=== PATIENT | female | born 1940 | race Caucasian/White ===

== ENCOUNTER → 2017-04-15 | Outpatient (CLI) | payer MEDICARE, BC ==
--- NOTE | 2017-04-15 14:09 | BD ---
EXAMINATION TYPE: MG DEXA axial skeleton. DATE OF EXAM: 04/15/2017 COMPARISON: NONE CLINICAL HISTORY: Height: 65 IN Weight: 224 LBS FRAX RISK QUESTIONS: Alcohol (3 or more units per day): NO Family History (Parent hip fracture): NO Glucocorticoids (More than 3mos): NO (Ex: prednisone, prednisolone, methylprednisolone, dexamethasone, and hydrocortisone). History of Fracture in Adulthood: YES RT HAND AGE 62 Secondary Osteoporosis: 1. Type 1 Diabetes: NO 2. Hyperthyroidism: NO 3. Menopause before 45: NO 4. Malnutrition: NO 5. Chronic liver disease: NO Rheumatoid Arthritis: NO Current Tobacco Use: NO RISK FACTORS HISTORY OF: History of Wrist Fracture: LEFT WRIST When: IN 2007 Other Fractures since Age 52: YES RT HAND When: AGE 62 Active: YES Postmenopausal woman: AGE 57 MEDICATIONS: Thyroid Medications: YES Which medication: Levothyroxine How Lon YRS Additional Medications: CALCIUM, LEVOTHYROXINE, XANAX, AMLODIPINE, FLONASE, LISINIPRIL, ATENOLOL, ENRIQUE RVASTATIN, ISOSORBIDE EXAM MEASUREMENTS: Bone mineral densitometry was performed using the [employer] System. Bone mineral density as measured about the Lumbar spine is: ----- L1-L4(G/cm2): 1.187 T Score Values are as follows: ----- L2: 0.0 ----- L3: -0.5 ----- L4: 0.1 ----- L1-L4: 0.1 Bone mineral density has: Increased 1.7% since study of: 02/19/2013 Bone mineral density about the R hip (g/cm2): 0.875 Bone mineral density about the L hip (g/cm2): 0.852 T Score values are as follows: -----R Neck: -1.2 -----L Neck: -1.3 -----R Total: -0.3 -----L Total: -0.5 Bone mineral density has: Decreased -6.7% since study of: 02/19/2013 IMPRESSION: No evidence of osteopenia or osteoporosis NOTE: T-SCORE=SD OF THE YOUNG ADULT MEAN.
--- NOTE | 2017-04-16 14:09 | MM ---
Reason for exam: screening (asymptomatic). Last mammogram was performed 2 years and 1 month ago. History: Patient is postmenopausal. Physical Findings: A clinical breast exam by your physician is recommended on an annual basis and results should be correlated with mammographic findings. MG Screening Mammo w CAD Bilateral CC and MLO view(s) were taken. Prior study comparison: March 09, 2015, bilateral MG screening mammo w CAD. There are scattered fibroglandular densities. No significant changes when compared with prior studies. ASSESSMENT: Benign, BI-RAD 2 RECOMMENDATION: Routine screening mammogram of both breasts in 1 year.
== END | disposition home or self-care (01) ==
LOC: RADMAMWWP 11:55
PROVIDERS: ATTEND Internal Medicine
DX: Z12.31 Encounter for screening mammogram for malignant neoplasm of breast (principal); M81.0 Age-related osteoporosis without current pathological fracture
CPT/HCPCS: 77080; G0202

== ENCOUNTER 2017-06-08 21:27 | Inpatient (IN) | payer MEDICARE, BC ==
--- NOTE | 2017-06-08 22:05 | ED ---
Weakness HPI <JoeJorge - Last Filed: 06/08/17 23:28> - General Source: patient Mode of arrival: ambulatory Limitations: no limitations <Jasmine Mazariegos - Last Filed: 06/08/17 23:44> - General Chief complaint: Weakness Stated complaint: Weakness, Neck Pain Time Seen by Provider: 06/08/17 21:40 - History of Present Illness Initial comments: 76-year-old female patient presents to emergency department today complaining of feeling rundown and tired. Symptoms started this morning. Patient states for the last couple of hours she has had sweats on and off, some chest discomfort, and pain in the back of her neck. Patient denies any shortness of breath, back pain, nausea, vomiting, abdominal pain, dizziness, weakness, dysuria, hematuria, urinary frequency, or urinary urgency. Patient does have history of myocardial infarction, 2 stents, and has had carotid endarterectomy in the past. Has history of smoking. She did take acetaminophen prior to coming in and states that her neck pain did improve. (Jasmine Mazariegos) - Related Data Home Medications Medication Instructions Recorded Confirmed ALPRAZolam [Alprazolam] 0.5 mg PO HS PRN 09/05/16 09/06/16 Aspirin 325 mg PO DAILY 09/05/16 09/06/16 Atenolol [Tenormin] 25 mg PO DAILY 09/05/16 09/06/16 Atorvastatin Calcium 40 mg PO DAILY 09/05/16 09/06/16 Clopidogrel Bisulfate [Clopidogrel] 75 mg PO DAILY 09/05/16 09/06/16 Isosorbide Mononitrate [Isosorbide 30 mg PO DAILY 09/05/16 09/06/16 Mononitrate ER] Levothyroxine Sodium [Synthroid] 50 mcg PO DAILY 09/05/16 09/06/16 Lisinopril [Lisinopril] 20 mg PO DAILY 09/05/16 09/06/16 Multivitamins, Thera [Multivitamin] 1 each PO DAILY 09/05/16 09/06/16 amLODIPine [Norvasc] 5 mg PO DAILY 09/05/16 09/06/16 Allergies Allergy/AdvReac Type Severity Reaction Status Date / Time erythromycin base Allergy Rash/Hives Verified 06/08/17 21:37 Penicillins Allergy Unknown Verified 06/08/17 21:37 Childhood sulfamethoxazole Allergy Rash/Hives Verified 06/08/17 21:37 [From ] trimethoprim [From ] Allergy Rash/Hives Verified 06/08/17 21:37 Review of Systems ROS Other: All systems not noted in ROS Statement are negative. <JoeJorge - Last Filed: 06/08/17 23:28> ROS Other: All systems not noted in ROS Statement are negative. <Jasmine Mazariegos - Last Filed: 06/08/17 23:44> ROS Statement: Those systems with pertinent positive or pertinent negative responses have been documented in the HPI. Past Medical History Past Medical History: Coronary Artery Disease (CAD), Hyperlipidemia, Hypertension, Osteoarthritis (OA) History of Any Multi-Drug Resistant Organisms: None Reported Past Surgical History: Heart Catheterization With Stent, Hysterectomy Additional Past Surgical History / Comment(s): carotidendartectomy Past Psychological History: Anxiety Smoking Status: Never smoker Past Alcohol Use History: Occasional Past Drug Use History: None Reported <Jasmine Mazariegos - Last Filed: 06/08/17 23:44> General Exam Limitations: no limitations General appearance: alert, in no apparent distress Head exam: Present: atraumatic, normocephalic, normal inspection Eye exam: Present: normal appearance, PERRL, EOMI. Absent: scleral icterus, conjunctival injection, periorbital swelling ENT exam: Present: normal exam, mucous membranes moist Neck exam: Present: normal inspection, full ROM. Absent: tenderness, meningismus, lymphadenopathy Respiratory exam: Present: normal lung sounds bilaterally. Absent: respiratory distress, wheezes, rales, rhonchi, stridor Cardiovascular Exam: Present: normal rhythm, irregular rhythm, normal heart sounds. Absent: systolic murmur, diastolic murmur, rubs, gallop, clicks GI/Abdominal exam: Present: soft, normal bowel sounds. Absent: distended, tenderness, guarding, rebound, rigid Extremities exam: Present: normal inspection, full ROM, normal capillary refill. Absent: tenderness, pedal edema, joint swelling, calf tenderness Back exam: Present: normal inspection Neurological exam: Present: alert, oriented X3, CN II-XII intact Psychiatric exam: Present: normal affect, normal mood Skin exam: Present: warm, dry, intact, normal color. Absent: rash <Jasmine Mazariegos - Last Filed: 06/08/17 23:44> EKG Findings - EKG Comments: EKG Findings:: EKG obtained at 2152 reveals atrial fibrillation with a right bundle branch block. Ventricular rate at this time is 83, QRS duration 138, QTC 408, QTC 479. No prior studies available for comparison. <Jasmine Mazariegos - Last Filed: 06/08/17 23:44> Medical Decision Making - Lab Data Result diagrams: 06/08/17 21:50 06/08/17 21:50 <JoeJorge - Last Filed: 06/08/17 23:28> - Lab Data Result diagrams: 06/08/17 21:50 06/08/17 21:50 - Radiology Data Radiology results: report reviewed, image reviewed <Jasmine Mazariegos - Last Filed: 06/08/17 23:44> - Medical Decision Making Medical decision-making. This is a 76-year-old female here with family. The patient reports that throughout the day she felt unusually weak. Became diaphoretic toward the afternoon. Patient states she even had difficulty mixing batter to make take. She had discomfort to her back and some mild pressure to her chest. Upon arrival to emergency room EKG showed what appeared to be possible new onset A. fib. After approximate one-hour repeat EKG was done which showed some P waves. Enzymes within normal limits. The patient does have a past history of [place] in the past. It was thought prudent for the patient be admitted for observation for unstable angina and the possibility of a new onset A. fib. Patient has seen cardiology in the past. Discussed the case with Dr. Ceep the on-call for Dr. Flynn. Patient be admitted to Dr. Herrera. Dr. Diaz (Jorge Diaz) 76-year-old female patient presented today for fatigue and unusual weakness. Patient also had some diaphoresis on and off a couple hours prior to admission. Initial EKG evaluation showed a new onset atrial fibrillation. EKG was repeated later during stay and did show normal sinus rhythm at that point. Patient does have a history of myocardial infarction with stent placement. In light of this history we will admit patient to Dr. Hendricks's service with cardiology consult. Patient will be heparinized. Dr. Diaz did speak with Dr. Hendricks who agreed to this plan. Also did discuss with patient incidental findings of 2 nodules on chest x-ray. Did recommend follow-up evaluation as well as repeat chest x-ray in 3-6 months. (Jasmine Mazariegos) - Lab Data Lab Results 06/08/17 06/08/17 06/08/17 Range/Units 21:50 21:50 21:50 WBC 11.5 H (3.8-10.6) k/uL RBC 4.37 (3.80-5.40) m/uL Hgb 12.9 (11.4-16.0) gm/dL Hct 39.5 (34.0-46.0) % MCV 90.4 (80.0-100.0) fL MCH 29.5 (25.0-35.0) pg MCHC 32.6 (31.0-37.0) g/dL RDW 14.2 (11.5-15.5) % Plt Count 340 (150-450) k/uL Neutrophils % 77 % Lymphocytes % 12 % Monocytes % 6 % Eosinophils % 3 % Basophils % 0 % Neutrophils # 8.9 H (1.3-7.7) k/uL Lymphocytes # 1.4 (1.0-4.8) k/uL Monocytes # 0.7 (0-1.0) k/uL Eosinophils # 0.3 (0-0.7) k/uL Basophils # 0.0 (0-0.2) k/uL PT (9.0-12.0) sec INR (<1.2) APTT (22.0-30.0) sec Sodium 143 (137-145) mmol/L Potassium 4.3 (3.5-5.1) mmol/L Chloride 108 H (98-107) mmol/L Carbon Dioxide 22 (22-30) mmol/L Anion Gap 13 mmol/L BUN 19 H (7-17) mg/dL Creatinine 0.90 (0.52-1.04) mg/dL Est GFR (MDRD) Af Amer >60 (>60 ml/min/1.73 sqM) Est GFR (MDRD) Non-Af >60 (>60 ml/min/1.73 sqM) Glucose 133 H (74-99) mg/dL POC Glucose (mg/dL) (75-99) mg/dL POC Glu Rover Tender ID Calcium 9.7 (8.4-10.2) mg/dL Magnesium 1.8 (1.6-2.3) mg/dL Total Bilirubin 0.3 (0.2-1.3) mg/dL AST 19 (14-36) U/L ALT 29 (9-52) U/L Alkaline Phosphatase 86 (38-126) U/L Total Creatine Kinase 89 (30-135) U/L CK-MB (CK-2) 0.9 (0.0-2.4) ng/mL CK-MB (CK-2) Rel Index 1.0 Troponin I <0.012 (0.000-0.034) ng/mL Total Protein 6.6 (6.3-8.2) g/dL Albumin 4.0 (3.5-5.0) g/dL TSH 2.870 (0.465-4.680) mIU/L Urine Color Urine Appearance (Clear) Urine pH (5.0-8.0) Ur Specific [place] (1.001-1.035) Urine Protein (Negative) Urine Glucose (UA) (Negative) Urine Ketones (Negative) Urine Blood (Negative) Urine Nitrite (Negative) Urine Bilirubin (Negative) Urine Urobilinogen (<2.0) mg/dL Ur Leukocyte Esterase (Negative) Urine RBC (0-5) /hpf Urine WBC (0-5) /hpf Ur Squamous Epith Cells (0-4) /hpf Hyaline Casts (0-2) /lpf Urine Mucus (None) /hpf 06/08/17 06/08/17 06/08/17 Range/Units 21:50 21:50 21:50 WBC (3.8-10.6) k/uL RBC (3.80-5.40) m/uL Hgb (11.4-16.0) gm/dL Hct (34.0-46.0) % MCV (80.0-100.0) fL MCH (25.0-35.0) pg MCHC (31.0-37.0) g/dL RDW (11.5-15.5) % Plt Count (150-450) k/uL Neutrophils % % Lymphocytes % % Monocytes % % Eosinophils % % Basophils % % Neutrophils # (1.3-7.7) k/uL Lymphocytes # (1.0-4.8) k/uL Monocytes # (0-1.0) k/uL Eosinophils # (0-0.7) k/uL Basophils # (0-0.2) k/uL PT 9.5 (9.0-12.0) sec INR 0.9 (<1.2) APTT 23.0 (22.0-30.0) sec Sodium (137-145) mmol/L Potassium (3.5-5.1) mmol/L Chloride (98-107) mmol/L Carbon Dioxide (22-30) mmol/L Anion Gap mmol/L BUN (7-17) mg/dL Creatinine (0.52-1.04) mg/dL Est GFR (MDRD) Af Amer (>60 ml/min/1.73 sqM) Est GFR (MDRD) Non-Af (>60 ml/min/1.73 sqM) Glucose (74-99) mg/dL POC Glucose (mg/dL) 129 H (75-99) mg/dL POC Glu Rover Tender ID Miquel Zamarripa Calcium (8.4-10.2) mg/dL Magnesium (1.6-2.3) mg/dL Total Bilirubin (0.2-1.3) mg/dL AST (14-36) U/L ALT (9-52) U/L Alkaline Phosphatase (38-126) U/L Total Creatine Kinase (30-135) U/L CK-MB (CK-2) (0.0-2.4) ng/mL CK-MB (CK-2) Rel Index Troponin I (0.000-0.034) ng/mL Total Protein (6.3-8.2) g/dL Albumin (3.5-5.0) g/dL TSH (0.465-4.680) mIU/L Urine Color Yellow Urine Appearance Cloudy H (Clear) Urine pH 5.5 (5.0-8.0) Ur Specific [place] 1.021 (1.001-1.035) Urine Protein 1+ H (Negative) Urine Glucose (UA) Negative (Negative) Urine Ketones Negative (Negative) Urine Blood Negative (Negative) Urine Nitrite Negative (Negative) Urine Bilirubin 1+ H (Negative) Urine Urobilinogen 2.0 (<2.0) mg/dL Ur Leukocyte Esterase Large H (Negative) Urine RBC 3 (0-5) /hpf Urine WBC 3 (0-5) /hpf Ur Squamous Epith Cells 4 (0-4) /hpf Hyaline Casts 167 H (0-2) /lpf Urine Mucus Many H (None) /hpf - Radiology Data Two-view x-ray of the chest shows no focal home area infiltrate or consolidations. There is a small 5 mm nodular density to the lateral right lung base. Additional approximate 10 mm ovoid nodular density show cardiac region only well appreciated on lateral view.Shows no evidence of pleural effusion or pneumothorax. Heart size within normal limits. Mediastinal structures are unremarkable. Degenerative changes throughout the mid and lower thoracic spine. Prominent calcific atherosclerotic plaque involving the thoracic aorta. Impression by Dr. Steele was no evidence of acute cardiopulmonary disease. Small lateral right lung base nodular density in additional nodular density in the retrocardiac region which are of indeterminate etiology. Follow-up CT chest should be considered. (Jasmine Mazariegos) Disposition <Jorge Diaz - Last Filed: 06/08/17 23:28> Decision to Admit Reason: Admit from EC Decision Date: 06/08/17 Decision Time: 23:39 <Jasmine Mazariegos - Last Filed: 06/08/17 23:44> Clinical Impression: Unstable angina, New onset a-fib Disposition: ADMITTED IP TO THIS HOSP Condition: Fair Referrals: Dayday Swanson MD [Primary Care Provider] - 1-2 days
[2017-06-08 22:10] LABS: Basophils % (A) 0 %; CH 30.2; CHCM 33.6; Eosinophils # (A) 0.3 k/uL (0-0.7); Eosinophils % (A) 3 %; Glucose,Whole Blood 129 mg/dL (75-99); HCT 39.5 % (34.0-46.0); HDW 2.38; HGB 12.9 gm/dL (11.4-16.0); Luc # (Auto) 0.23; Luc % (Auto) 2; Lymphocytes # (A) 1.4 k/uL (1.0-4.8); Lymphocytes % (A) 12 %; MCH 29.5 pg (25.0-35.0); MCHC 32.6 g/dL (31.0-37.0); MCV 90.4 fL (80.0-100.0); Mean Platelet Volume 8.8; Monocytes # (A) 0.7 k/uL (0-1.0); Monocytes % (A) 6 %; Neutrophils # (A) 8.9 k/uL (1.3-7.7); Neutrophils % (A) 77 %; RBC 4.37 m/uL (3.80-5.40); RDW 14.2 % (11.5-15.5); WBC 11.5 k/uL (3.8-10.6); WBC (Perox) 11.03
[2017-06-08 22:11] LABS: Appearance,Urine Cloudy (Clear); Bilirubin,Urine 1+ (Negative); Glucose,Urine (UA) Negative (Negative); Ketones,Urine Negative (Negative); Leukocyte Esterase,Urine Large (Negative); Mucus,Urine Many /hpf; Nitrite,Urine Negative (Negative); PH, Urine 5.5 (5.0-8.0); Particle Count 12673; Protein,Urine 1+ (Negative); RBC,Urine 3 /hpf (0-5); Specific Gravity,Urine 1.021 (1.001-1.035); Squamous Epithelial Cell,Urine 4 /hpf (0-4); UA Billing (MACRO vs. MICRO) MICRO; WBC,Urine 3 /hpf (0-5)
[2017-06-08 22:19] LABS: ALT 29 U/L (9-52); AST 19 U/L (14-36); Alkaline Phosphatase 86 U/L (38-126); Anion Gap 13 mmol/L; Blood Urea Nitrogen 19 mg/dL (7-17); Calcium 9.7 mg/dL (8.4-10.2); Carbon Dioxide 22 mmol/L (22-30); Chloride 108 mmol/L (98-107); Glucose 133 mg/dL (74-99); Magnesium 1.8 mg/dL (1.6-2.3); Non-African American GFR(MDRD) >60 (>60 ml/min/1.73 sqM); Potassium 4.3 mmol/L (3.5-5.1); Sodium 143 mmol/L (137-145); Total Bilirubin 0.3 mg/dL (0.2-1.3); Total Protein 6.6 g/dL (6.3-8.2)
[2017-06-08 22:25] LABS: INR 0.9 (<1.2); Prothrombin Time 9.5 sec (9.0-12.0)
[2017-06-08 22:35] LABS: Creatine Kinase 89 U/L (30-135)
[2017-06-08 22:48] LABS: Creatine Kinase MB 0.9 ng/mL (0.0-2.4); Troponin I <0.012 ng/mL (0.000-0.034)
--- NOTE | 2017-06-08 22:49 | XR ---
EXAM: XR Chest, 2 Views CLINICAL HISTORY: Reason: Weakness TECHNIQUE: Frontal and lateral views of the chest. COMPARISON: Portable AP Chest radiograph 09/06/2016 FINDINGS: Lungs: No focal pulmonary infiltrates or consolidations. Small 5 mm nodular density projects to lateral right lung base. Additional approximately 10 mm ovoid nodular density retrocardiac region only well appreciated on lateral view. Pleural space: No evidence of pleural effusion or pneumothorax. Heart: Heart size is within normal limits. Mediastinum: Mediastinal structures are unremarkable. Bones/joints: Degenerative changes throughout the mid and lower thoracic spine. Vasculature: Prominent calcific atherosclerotic plaque involving thoracic aorta. IMPRESSION: No evidence of acute cardiopulmonary disease. Small lateral right lung base nodular density and additional nodular density in the retrocardiac region which are of indeterminate etiology. Follow-up CT chest should be considered.
[2017-06-08] MEDS ORDERED: ASPIRIN 81 MG CHEW PO STA (23:33)
[2017-06-08] MEDS ORDERED: NITROGLYCERIN SL TABS 0.4 MG TAB SUBLINGUAL PRN (23:33)
[2017-06-08] MEDS ORDERED: HEPARIN SODIUM,PORCINE 5,000 UNIT/ML 1 ML VIAL IV ONE (23:33)
[2017-06-08] MEDS ORDERED: HEPARIN SODIUM,PORCINE/D5W PMX 25,000 UNIT in DEXTROSE/WATER 1 500ML.BAG IV SCH (23:45)
[2017-06-09] MEDS: SODIUM CHLORIDE 0.9% 1,000 ML IV SCH (02:53)
[2017-06-09 04:30] LABS: Creatine Kinase 59 U/L (30-135)
[2017-06-09 04:42] LABS: Creatine Kinase MB 0.6 ng/mL (0.0-2.4); Troponin I <0.012 ng/mL (0.000-0.034)
[2017-06-09 05:07] LABS: Cholesterol 106 mg/dL (<200); HDL Cholesterol 32 mg/dL (40-60)
[2017-06-09] MEDS ORDERED: HEPARIN SODIUM,PORCINE 5,000 UNIT/ML 1 ML VIAL IV PRN (07:52)
[2017-06-09] MEDS ORDERED: ASPIRIN 325 MG TAB PO SCH (09:00)
[2017-06-09 10:25] LABS: Creatine Kinase 56 U/L (30-135)
[2017-06-09 10:37] LABS: Creatine Kinase MB 0.5 ng/mL (0.0-2.4); Troponin I <0.012 ng/mL (0.000-0.034)
[2017-06-09] MEDS ORDERED: ALPRAZolam 0.5 MG TAB PO PRN (10:37)
[2017-06-09] MEDS ORDERED: AMINOPHYLLINE 500 MG/20 ML VIAL IV PRN (12:05)
--- NOTE | 2017-06-09 12:05 | P.CRDCN ---
History of Present Illness Consult date: 06/09/17 Chief complaint: Chest discomfort History of present illness: This is a pleasant 76-year-old female patient who sees Dr. Drummond in the office on a regular basis with a past medical history significant for CAD and prior stenting with unknown details at this point, hypertension, and dyslipidemia, presented to the hospital because she was not feeling well. The patient was in her usual state of health until yesterday when she was doing some work at home and she felt tired and fatigued and also she developed pain in her neck. Beside that she developed some discomfort in the chest as well. She described also some episodes of sweating. The patient was admitted to the hospital for further cardiac evaluation. The EKG showed sinus rhythm with RBBB. Cardiac enzymes were checked and came in to be unremarkable. Past Medical History Past Medical History: Coronary Artery Disease (CAD), Hyperlipidemia, Hypertension, Osteoarthritis (OA) Additional Past Medical History / Comment(s): bronchoscopy (September 2016)- found nodules History of Any Multi-Drug Resistant Organisms: None Reported Past Surgical History: Adenoidectomy, Heart Catheterization With Stent, Hysterectomy Additional Past Surgical History / Comment(s): carotidendartectomy Past Anesthesia/Blood Transfusion Reactions: No Reported Reaction Date of Last Stent Placement:: 2005 Past Psychological History: Anxiety Smoking Status: Never smoker Past Alcohol Use History: Occasional Past Drug Use History: None Reported - Past Family History Father Family Medical History: Hypertension, Myocardial Infarction ([place]) Mother Family Medical History: Hypertension Additional Family Medical History / Comment(s): Liver Cancer Medications and Allergies Home Medications Medication Instructions Recorded Confirmed Type ALPRAZolam [Alprazolam] 0.5 mg PO HS PRN 09/05/16 06/09/17 History Aspirin 325 mg PO DAILY 09/05/16 06/09/17 History Atenolol [Tenormin] 25 mg PO DAILY 09/05/16 06/09/17 History Atorvastatin Calcium 40 mg PO HS 09/05/16 06/09/17 History Isosorbide Mononitrate [Isosorbide 30 mg PO DAILY 09/05/16 06/09/17 History Mononitrate ER] Levothyroxine Sodium [Synthroid] 50 mcg PO DAILY 09/05/16 06/09/17 History Lisinopril [Lisinopril] 20 mg PO DAILY 09/05/16 06/09/17 History Multivitamins, Thera [Multivitamin] 1 tab PO DAILY 09/05/16 06/09/17 History amLODIPine [Norvasc] 5 mg PO DAILY 09/05/16 06/09/17 History Allergies Allergy/AdvReac Type Severity Reaction Status Date / Time erythromycin base Allergy Rash/Hives Verified 06/09/17 09:14 Penicillins Allergy Unknown Verified 06/09/17 09:14 Childhood sulfamethoxazole Allergy Rash/Hives Verified 06/09/17 09:14 [From ] trimethoprim [From ] Allergy Rash/Hives Verified 06/09/17 09:14 Physical Exam Vitals: Vital Signs Temp Pulse Pulse Resp BP BP Pulse Ox 06/09/17 11:48 96.0 F L 68 18 182/74 95 06/09/17 08:00 96.2 F L 61 18 152/67 97 06/09/17 04:00 57 L 18 132/60 99 06/09/17 00:33 96.8 F L 69 20 180/71 97 06/09/17 00:19 98.0 F 64 18 176/80 97 06/09/17 00:02 98.0 F 72 18 176/80 96 06/08/17 23:00 66 18 98 06/08/17 22:33 63 18 150/68 97 06/08/17 22:02 85 06/08/17 21:34 97.2 F L 86 18 196/80 98 Intake and Output 06/08/17 06/09/17 06/09/17 22:59 06:59 14:59 Intake Total 164.251 Balance 164.251 Intake: Intake, IV Titration 164.251 Amount Heparin Sodium,Porcine/ 164.251 D5w Pmx 25,000 unit In Dextrose/Water 1 500ml. bag @ 9.745 UNITS/KG/HR 20.06 mls/hr IV .Q24H [facility] Rx#:[id number] Other: Voiding Method Toilet # Voids 2 Weight 102.965 kg 102 kg - Constitutional General appearance: no acute distress - Respiratory Respiratory: bilateral: CTA - Cardiovascular Rhythm: regular Heart sounds: normal: S1, S2 Results 06/08/17 21:50 06/08/17 21:50 Cardiac Enzymes 06/08/17 06/08/17 06/09/17 Range/Units 21:50 21:50 03:57 AST 19 (14-36) U/L CK-MB (CK-2) 0.9 0.6 (0.0-2.4) ng/mL Troponin I <0.012 <0.012 (0.000-0.034) ng/mL 06/09/17 Range/Units 09:46 AST (14-36) U/L CK-MB (CK-2) 0.5 (0.0-2.4) ng/mL Troponin I <0.012 (0.000-0.034) ng/mL Coagulation 06/08/17 06/09/17 Range/Units 21:50 07:03 PT 9.5 (9.0-12.0) sec APTT 23.0 39.6 H (22.0-30.0) sec Lipids 06/09/17 Range/Units 03:57 Triglycerides 228 H (<150) mg/dL Cholesterol 106 (<200) mg/dL HDL Cholesterol 32 L (40-60) mg/dL CBC 06/08/17 Range/Units 21:50 WBC 11.5 H (3.8-10.6) k/uL RBC 4.37 (3.80-5.40) m/uL Hgb 12.9 (11.4-16.0) gm/dL Hct 39.5 (34.0-46.0) % Plt Count 340 (150-450) k/uL Comprehensive Metabolic Panel 06/08/17 Range/Units 21:50 Sodium 143 (137-145) mmol/L Potassium 4.3 (3.5-5.1) mmol/L Chloride 108 H (98-107) mmol/L Carbon Dioxide 22 (22-30) mmol/L BUN 19 H (7-17) mg/dL Creatinine 0.90 (0.52-1.04) mg/dL Glucose 133 H (74-99) mg/dL Calcium 9.7 (8.4-10.2) mg/dL AST 19 (14-36) U/L ALT 29 (9-52) U/L Alkaline Phosphatase 86 (38-126) U/L Total Protein 6.6 (6.3-8.2) g/dL Albumin 4.0 (3.5-5.0) g/dL Current Medications Generic Name Dose Route Start Last Admin Trade Name Analia PRN Reason Stop Dose Admin Alprazolam 0.5 mg 06/09/17 10:37 Xanax PO HS PRN SLEEP Amlodipine Besylate 5 mg 06/09/17 09:00 Norvasc PO DAILY [facility] Aspirin 325 mg 06/10/17 09:00 Aspirin PO DAILY [facility] Atenolol 25 mg 06/09/17 10:45 Tenormin PO DAILY [facility] Atorvastatin Calcium 40 mg 06/09/17 21:00 Lipitor PO HS [facility] Heparin Sodium (Porcine) 0 unit 06/09/17 07:52 06/09/17 08:08 Heparin IV 4,000 unit PER PROTOCOL PRN Administration Low PTT Protocol Heparin Sodium/Dextrose 25,000 500 mls @ 20.06 mls/hr 06/08/17 23:45 08:13 unit/ IV Solution IV 12.7 units/kg/hr .Q24H [facility] 26.15 mls/hr Protocol Titration 9.745 UNITS/KG/HR Sodium Chloride 1,000 mls @ 20 mls/hr 06/08/17 23:45 06/09/17 02:53 Saline 0.9% IV Not Given .Q24H [facility] Isosorbide Mononitrate 30 mg 06/09/17 10:45 Imdur PO DAILY [facility] Levothyroxine Sodium 50 mcg 06/09/17 10:45 Synthroid PO DAILY@0630 [facility] Lisinopril 20 mg 06/09/17 10:45 Zestril PO DAILY [facility] Multivitamins 1 each 06/10/17 12:00 Theragran PO DAILY@1200 [facility] Nitroglycerin 0.4 mg 06/08/17 23:33 Nitrostat SUBLINGUAL Q5M PRN Chest Pain Intake and Output 06/08/17 06/09/17 06/09/17 22:59 06:59 14:59 Intake Total 164.251 Balance 164.251 Intake: Intake, IV Titration 164.251 Amount Heparin Sodium,Porcine/ 164.251 D5w Pmx 25,000 unit In Dextrose/Water 1 500ml. bag @ 9.745 UNITS/KG/HR 20.06 mls/hr IV .Q24H [facility] Rx#:[id number] Other: Voiding Method Toilet # Voids 2 Weight 102.965 kg 102 kg 06/08/17 21:50 06/08/17 21:50 Assessment and Plan Plan: This is a pleasant 76-year-old female patient was known CAD and prior stenting as well as multiple comorbid conditions was admitted to the hospital with chest discomfort and neck discomfort as well as a sweating. She was ruled out for acute coronary event. I am going to proceed with a stress test and also echocardiogram and follow-up with her.
[2017-06-09] MEDS: amLODIPine 5 MG TAB PO SCH (12:24)
[2017-06-09] MEDS: ISOSORBIDE MONONITRATE ER 30 MG TAB.ER.24H PO SCH (12:24)
[2017-06-09] MEDS: LISINOPRIL 20 MG TAB PO SCH (12:25)
[2017-06-09] MEDS: ATENOLOL 25 MG TAB PO SCH (12:25)
[2017-06-09] MEDS: LEVOTHYROXINE 50 MCG TAB PO SCH (12:25)
[2017-06-09] MEDS: CIPROFLOXACIN HCL 250 MG TAB PO SCH ×2 (14:52→22:05)
[2017-06-09] MEDS ORDERED: ATORVASTATIN 40 MG TAB PO SCH (21:00)
[2017-06-10 06:27] VITALS: RESP 18
[2017-06-10] MEDS: SODIUM CHLORIDE 0.9% 1,000 ML IV SCH (06:28)
[2017-06-10 06:47] LABS: Basophils % (A) 1 %; CHCM 32.9; Eosinophils # (A) 0.2 k/uL (0-0.7); Eosinophils % (A) 4 %; HCT 32.7 % (34.0-46.0); HDW 2.29; HGB 10.4 gm/dL (11.4-16.0); Luc % (Auto) 3; Lymphocytes % (A) 17 %; MCH 29.3 pg (25.0-35.0); MCV 91.6 fL (80.0-100.0); Mean Platelet Volume 8.5; Monocytes # (A) 0.4 k/uL (0-1.0); Monocytes % (A) 7 %; Neutrophils % (A) 68 %; RBC 3.57 m/uL (3.80-5.40); RDW 13.8 % (11.5-15.5); WBC 5.9 k/uL (3.8-10.6); WBC (Perox) 5.85
[2017-06-10] MEDS: LEVOTHYROXINE 50 MCG TAB PO SCH (06:55)
[2017-06-10 07:02] LABS: Anion Gap 9 mmol/L; Blood Urea Nitrogen 14 mg/dL (7-17); Calcium 8.9 mg/dL (8.4-10.2); Carbon Dioxide 23 mmol/L (22-30); Chloride 110 mmol/L (98-107); Glucose 87 mg/dL (74-99); Non-African American GFR(MDRD) >60 (>60 ml/min/1.73 sqM); Potassium 4.1 mmol/L (3.5-5.1); Sodium 142 mmol/L (137-145)
--- NOTE | 2017-06-10 08:08 | P.PN ---
Progress Note - Text The patient is a 76-year-old female who was admitted yesterday through the emergency room and seen by Dr. Hendricks for me. Cardiology has been consulted as patient had some weakness and chest discomfort. Patient does have history of coronary artery disease with history of previous stenting and she has other coronary risk factors which include hypertension and hyperlipidemia. So far her laboratory studies revealed normal troponin levels of less than 0.012 along with normal CK values. EKGs have revealed normal sinus rhythm with right bundle branch block, consistent with old inferior wall [place] but no definite new acute changes noted. Patient this morning is sitting up in bed and not complaining of any chest pain. She has had some neck discomfort. No shortness of breath or nausea or vomiting. Vital signs reveal a temperature of 97.2 with a pulse of 60 and respirations 18. Blood pressure is 127/58 and she is 96% saturated on room air. Lung and heart examination is clear and regular. No unusual edema. No focal neurological changes. Impressions and plans: Overall this 76-year-old female who has had some chest discomfort. Risk factors as stated above. Patient is scheduled for a stress tests. She has been evaluated by cardiology. Discussed with patient along with cardiology nurse this morning. Anticipate possible discharge if testing is normal otherwise we'll await further cardiology recommendations. Dr. Hendricks pumping station engineer for me today if any questions or concerns.
[2017-06-10] MEDS ORDERED: ASPIRIN 325 MG TAB PO SCH (09:00)
[2017-06-10] MEDS ORDERED: REGADENOSON 0.4 MG/5 ML SYRINGE IV ONE (09:00)
--- NOTE | 2017-06-10 10:48 | HP ---
DATE OF SERVICE: 06/09/2017 NEW DATA: Age [age] year old white female . She is 5 foot 5 inches height and 102 kg, BSA 2.08 sq m, BMI 37.4 sq kg/m with the underlying obesity. ALLERGIES AND ADVERSE EFFECTS: ERYTHROMYCIN, PENICILLIN, SULFAMETHIAZOLE, TRIMETHOPRIM. HISTORY AND CHIEF COMPLAINT: Patient was brought to the emergency room by her son and with the chief complaint of chest pressure and neck pain. HISTORY OF PRESENT ILLNESS: A 76-year-old white female with the underlying history of coronary artery disease, atherosclerotic heart disease and 2 stents placed. Her tank riveter is Dr. Madie Drummond and in last January she stopped her Plavix per Dr. Madie Drummond. Currently presented to the emergency room with the history that she has been yesterday tired and she has been feeling tired and napping and no energy. When she went to [facility] she felt that she was lightheaded and she watched TV, she was doing cake, finished it barely and then she felt really pain in the chest and neck and called her son, Dimas. At that time she was sweating and they brought her to the emergency room. She still has the pain in the neck with the movement and she has heaviness in the chest that was minimally present. No numbness or tingling in the arm, but she got sweaty. As mentioned she lightheaded at [facility]. She was holding on her cart. She did not have pain in both arms, no radiation, no jaw radiation. She goes to the bathroom frequently, but no dysuria. FAMILY HISTORY: She has two children, one son and daughter with gravid 2, para 2. No history of smoking. Beer occasionally. PAST MEDICAL HISTORY: She had coronary artery disease and she had two stents in the heart placed and Dr. Drummond is the primary cardiology and she had right carotid surgery, an endarterectomy. History of bronchoscopy by Dr. Santiago for nodules on the lung and he is following her with Dr. Swanson. She had partial hysterectomy and she had no history of stomach ulcer and history of hypertension , hypertensive heart disease and no history of diabetes. She had history of bronchitis and pneumonia. Two and half weeks ago [place] was [place] and Dr. Swanson gave her antibiotics for 10 days for coughing. She did not develop any diarrhea. REVIEW OF SYSTEMS: NEUROPSYCHIATRY: Negative. CARDIOVASCULAR: The pressure in the chest and neck discomfort which could also be associated with arthritis. No neck pain at the time of examination now. However, she denied any jaw pain or radiation to the arms. CHEST: She had no coughing recently on this admission and no wheezing. She also on the cardiovascular she had hypertension and she stated it was controlled with the current medication from Dr. Swanson. GI: No history of hematemesis or melena or hematochezia. : She had frequency of urination. MUSCULOSKELETAL: She was tired and fatigued. No history of strokes in the past. She had history of NM in 2005. On evaluation of the laboratory on admission she was found to have WBC 11.5. No left shift. No bands. They placed her in the ER on heparin protocol with the unstable angina with history of stents in the past. The chemistry was indicating her blood sugar was 133 but was not fasting. The POC glucose was 129. Her calcium was normal at 9.7, liver enzyme was normal and the CKMB as well as CKMB index and troponin x3 was normal. Her triglyceride was elevated 228 and the cholesterol total was 106 and LDL is 28 and the HDL is 32 and she is on cholesterol medication; however, she had dyslipidemia. On the urinalysis was 1+ protein as well as 1+ bilirubin. However she had large leukocyte with the probability of underlying urinary tract infection, could be present as well and will be starting short course of treatment secluding the allergy to special medications. On the physical exam patient is conscious, alert, oriented x3, able to communicate freely, present is her and son, as subsequently her daughter also was present. HEENT: The head was normocephalic, atraumatic. Pupils were equal and reactive. Conjunctivae were pink. Scleral was nonicteric. The neck was supple. No JVD and no thyromegaly and no lymphadenopathy. Trachea midline with the underlying right carotid endarterectomy. The chest was clear to auscultation and percussion. No wheezes , no rhonchi. The heart: PMI in the fifth intercoastal space, mildly outside the midclavicular line. Normal S1, S2. No gallop appreciated. No evidence of congestive heart failure. The abdomen is obese, positive bowel sounds with tenderness in the four quadrants. The extremities: No edema and positive pulses bilateral and symmetrical. Musculoskeletal: She had advanced degenerative arthritis of the knee bilaterally. Neurological examination: Deep tendon reflexes were 2+/2+ with normal plantar reflex and she is ambulatory. ASSESSMENT: 1. History of coronary artery disease, atherosclerotic heart disease with the history of two stents placement by Dr. Madie Drummond. 2. Chest pain, questionable atypical. 3. 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 Her chest x-ray was also done and indicating that no evidence of acute pulmonary disease. Dr. Mccloud saw the patient in consultation. The patient according Dr. Mccloud, she will proceed for stress test and echocardiogram, which will probably be done tomorrow. Meanwhile, she is currently on the heparin and with the normal cardiac enzymes and EKG. Dr. Swanson will be seeing the patient and following her in the morning. ALFA
[2017-06-10] MEDS: CIPROFLOXACIN HCL 250 MG TAB PO SCH (11:00)
[2017-06-10] MEDS: amLODIPine 5 MG TAB PO SCH (11:00)
[2017-06-10] MEDS: ATENOLOL 25 MG TAB PO SCH (11:00)
[2017-06-10] MEDS: LISINOPRIL 20 MG TAB PO SCH (11:01)
[2017-06-10] MEDS: ISOSORBIDE MONONITRATE ER 30 MG TAB.ER.24H PO SCH (11:01)
[2017-06-10 11:23] VITALS: BP 175/74; PULSE 69; TEMP 97.6
[2017-06-10] MEDS ORDERED: MULTIVITAMINS, THERA 1 EACH TAB PO SCH (12:00)
--- NOTE | 2017-06-10 12:04 | P.PN ---
Subjective Principal diagnosis: Chest discomfort This is a pleasant 76-year-old female patient who sees Dr. Drummond in the office on a regular basis with a past medical history significant for CAD and prior stenting with unknown details at this point, hypertension, and dyslipidemia, presented to the hospital because she was not feeling well. The patient was in her usual state of health until yesterday when she was doing some work at home and she felt tired and fatigued and also she developed pain in her neck. Beside that she developed some discomfort in the chest as well. She described also some episodes of sweating. The patient underwent myocardial perfusion imaging stress test and the results are still pending. Reviewing the EKG again from yesterday it showed that one EKG is consistent was A. fib. We will start the patient on anticoagulation. Objective - Vital Signs Vital signs: Vital Signs Temp 97.6 F 06/10/17 11:23 Pulse 69 06/10/17 11:23 Resp 18 06/10/17 11:23 BP 175/74 06/10/17 11:23 Pulse Ox 95 06/10/17 11:23 Intake & Output 06/09/17 06/10/17 06/10/17 18:59 06:59 18:59 Intake Total 324.251 60 Balance 324.251 60 Weight 101.2 kg Intake: Intake, IV Titration 324.251 60 Amount Heparin Sodium,Porcine/ 164.251 D5w Pmx 25,000 unit In Dextrose/Water 1 500ml. bag @ 9.745 UNITS/KG/HR 20.06 mls/hr IV .Q24H ROBYN Rx#:[id number] Sodium Chloride 0.9% 1, 160 60 000 ml @ 20 mls/hr IV . Q24H ROBYN Rx#:[id number] Other: # Voids 1 - Constitutional General appearance: Present: no acute distress - Respiratory Respiratory: bilateral: CTA - Cardiovascular Rhythm: regular Heart sounds: normal: S1, S2 - Labs CBC & Chem 7: 06/10/17 06:00 06/10/17 06:00 Labs: Abnormal Lab Results - Last 24 Hours (Table) 06/09/17 06/10/17 06/10/17 Range/Units 13:56 06:00 06:00 RBC 3.57 L (3.80-5.40) m/uL Hgb 10.4 L (11.4-16.0) gm/dL Hct 32.7 L (34.0-46.0) % APTT 68.5 H (22.0-30.0) sec Chloride 110 H (98-107) mmol/L Microbiology - Last 24 Hours (Table) 06/08/17 21:50 Urine Culture - Preliminary Urine,Voided Assessment and Plan Plan: This is a pleasant 76-year-old female patient was known CAD and prior stenting as well as multiple comorbid conditions was admitted to the hospital with chest discomfort and neck discomfort as well as a sweating. She was ruled out for acute coronary event. The EKG showed sinus rhythm and other EKG showed A. fib. Will follow-up with the stress test. Also will start the patient on anticoagulation.
--- NOTE | 2017-06-10 12:50 | NM ---
EXAMINATION TYPE: NM stress lexiscan cardiolite DATE OF EXAM: 06/10/2017 COMPARISON: NONE HISTORY: TECHNIQUE: After the intravenous administration of 10.96 mCi Tc 99m Sestamibi - Cardiolite resting S PECT images acquired 55 minutes post injection. The patient received 0.4mg Lexiscan, 27.2 mCi Tc 99m Sestamibi - Stress images obtained [address] injection FINDINGS: Review of stress and rest SPECT images demonstrates no distinct perfusion abnormality. Gated analysi s shows normal wall motion with an estimated left ventricular ejection fraction of 66 %. IMPRESSION: No scintigraphic evidence for reversible ischemia.
--- NOTE | 2017-06-10 13:54 | CDI ---
In responding to this query, please exercise your independent professional judgment. The [facility] Coding Staff and Clinical Documentation Specialists appreciate your assistance in clarifying documentation, maintaining compliance with coding guidelines, accurately documenting patients condition and capturing severity of illness. The fact that a question is asked does not imply that any particular answer is desired or expected. Communication forms are a method of clarifying documentation and are not made part of the Legal Health Record. Thank you in advance for your clarification. Last Revision, September 2015 Prisca [place] [address] [place] [address] Documentation Clarification Form Date: 06/10/2017 1:39:00 PM From: Fadumo Art CCS, CCDS Admit Date: 06/08/2017 11:31:00 PM Patient Name: Sushma Woodruff Visit Number: [id number] Discharge Date: Dr. Thor Mccloud: Atrial fibrillation is documented in the History & Physical and also the cardiology progress note of 06/10 per EKG. History/Risk Factors: CAD w/history of stents x2, previous FL. Clinical Indicators: Presented with weakness, fatigue, neck pain, sweating. EKG/telemetry: A Fib Rate 83 w/RBBB, Old FL Treatment: IV Heparin, IV fluids, IV Aminophylline, Aspirin, Nitro sl, started anticoagulants per cardiology. Stress test, ECHO. Telemetry. Consults: Cardiology In your professional opinion, can you please clarify the type of atrial fibrillation, if known? Chronic/Permanent Paroxysmal Persistent Other, please specify Unable to determine Please document in your progress notes and discharge summary in order to capture severity of illness and risk of mortality. Include clinical findings that support your diagnosis. FYI: Press F11 to launch patient chart MTDD
--- NOTE | 2017-06-10 17:04 | P.STRESS ---
- Stress Test Note Stress Test Results/Findings: Exam Performed: NM stress lexiscan cardiolite Exam Date: 06/10/17 Reason for Exam: CP Height: 5 ft 5 in Weight: 101.2 kg Protocol: Lexiscan Stage: N/A Duration of Exercise: N/A Resting Heart Rate: 76 Resting Blood Pressure: 142/74 Maximum Achieved Heart Rate: 94 Maximum Achieved Blood Pressure: 215/71 85% PMHR: N/A 100% PMHR: N/A METS: N/A Technologist Comment: Stress Test Results/Findings: Patient was given Lexiscan injection over 15 seconds resting EKG shows a normal sinus rhythm with a QRS morphology suggestive of right bundle branch block pattern. No ST segment depression suggestive ischemia was noted. The results of the nuclear study will follow.
--- NOTE | 2017-06-10 17:12 | ECHOF ---
Referral Reason:chest pain MEASUREMENTS -------- HEIGHT: 165.1 cm WEIGHT: 103.4 kg BP: 127/58 RVIDd: 3.0 cm (< 3.3) IVSd: 1.3 cm (0.6 - 1.1) LVIDd: 3.9 cm (3.9 - 5.3) LVPWd: 1.2 cm (0.6 - 1.1) IVSs: 1.5 cm LVIDs: 2.8 cm LVPWs: 1.7 cm LA Diam: 4.1 cm (2.7 - 3.8) LAESV Index (A-L): 42.00 ml/m Ao Diam: 3.2 cm (2.0 - 3.7) AV Cusp: 2.1 cm (1.5 - 2.6) MV EXCURSION: 13.991 mm (> 18.000) MV EF SLOPE: 56 mm/s (70 - 150) EPSS: 0.7 cm MV E Tanner: 1.24 m/s MV DecT: 351 ms MV A Tanner: 1.41 m/s MV E/A Ratio: 0.88 RAP: 5.00 mmHg RVSP: 34.27 mmHg FINDINGS -------- Sinus rhythm. This was a technically good study. The left ventricular size is normal. There is mild concentric left ventricular hypertrophy. Overall left ventricular systolic function is normal with, an EF between 60 - 65 %. The right ventricle is normal in size. LA is severely dilated >40 ml/m2 The right atrium is normal in size. The aortic valve is trileaflet and appears structurally normal. There is mild aortic regurgitation. The mitral valve leaflets are mildly thickened. Mild mitral annular calcification present. Mild mitral regurgitation is present. Mild tricuspid regurgitation present. There is borderline pulmonary artery hypertension. Trace/mild (physiologic) pulmonic regurgitation. The aortic root size is normal. inferior vena cava with normal inspiratory collapse consistent with estimated right atrial pressure of 5 mmHg. The inferior vena cava is mildly dilated. There is no pericardial effusion. CONCLUSIONS -------- 1. Sinus rhythm. 2. There is mild aortic regurgitation. 3. The mitral valve leaflets are mildly thickened. 4. Mild mitral annular calcification present. 5. Mild mitral regurgitation is present. 6. Mild tricuspid regurgitation present. 7. There is borderline pulmonary artery hypertension. 8. Trace/mild (physiologic) pulmonic regurgitation. 9. The aortic root size is normal. 10. inferior vena cava with normal inspiratory collapse consistent with estimated right atrial pressure of 5 mmHg. 11. The inferior vena cava is mildly dilated. 12. This was a technically good study. 13. There is no pericardial effusion. 14. The left ventricular size is normal. 15. There is mild concentric left ventricular hypertrophy. 16. Overall left ventricular systolic function is normal with, an EF between 60 - 65 %. 17. The right ventricle is normal in size. 18. LA is severely dilated >40 ml/m2 19. The right atrium is normal in size. 20. The aortic valve is trileaflet and appears structurally normal. OFFICE EQUIPMENT TECHNICIAN: Apoorva Farias RDCS
--- NOTE | 2017-06-16 17:43 | DS ---
Mrs. Woodruff is a 76-year-old female who was admitted through the emergency room and seen initially by Dr. Hendricks for or who was covering. She presented with weakness, upper chest and neck discomfort and she does have history of coronary artery disease with previous stenting. Also, hypertension and hyperlipidemia. Patient was monitored and troponin values were less than 0.12 along with normal CK values. Initial EKG revealed a right bundle branch block and one EKG initially showed atrial fibrillation but two subsequent EKGs showed normal sinus rhythm and apparently she remained normal sinus on the monitor. Patient was seen by cardiology. Her chest x-ray showed some small right lung lateral nodules and retrocardiac nodular densities which were indeterminate etiology. Patient underwent echocardiographic study which revealed normal left ventricular size, overall ejection fraction 60-65%. RV was normal in size but LA was severely dilated, greater than 40 mL. Mild aortic regurgitation was present. Mild mitral regurgitation present. The aortic root was normal. The aortic valve was normal in size and trileaflet. A stress test was performed on the Lexiscan. There was no evidence of reversible ischemia present. The EKG showed a normal sinus rhythm with a right bundle branch block pattern with no ST segment depression suggestive of ischemia. Patient was able to ambulate, remained generally pain free. She was to be on her Eliquis 5 mg twice a day regarding the paroxysmal atrial fibrillation. She was also to take alprazolam 0.5 at bedtime if needed, atenolol 25 mg daily, atorvastatin 40 mg daily for cholesterol, isosorbide mononitrate 30 mg daily, levofloxacin 50 mcg daily, lisinopril 20 mg daily, multiple vitamin daily and amlodipine 5 mg daily. She was to stop her aspirin and Plavix at this time as she was started on the Eliquis. DISCHARGE DIAGNOSES: 76-year-old female with history of coronary artery disease and known risk factors with chest pain and negative stress testing as described above, pain related to underlying musculoskeletal pain and costochondritis. She also appears to have intermittent atrial fibrillation for which she has been started on Eliquis and she does have other risk factors that include hypertension, hyperlipidemia, underlying obesity, generalized anxiety disorder, hypothyroidism on replacement therapy. Previous surgeries that include hysterectomy and carotid endarterectomy and underlying diffuse osteoarthritis. Patient to gradually increase her activity without overstrenuous activity. Follow up with myself and [facility] over the next week. Call if any questions, concerns or problems should arise. MTDD
== END 2017-06-10 17:47 | disposition home or self-care (01) | DRG 206 ==
LOC: EC 21:27 → 6SEL 23:31
PROVIDERS: ADMIT Internal Medicine; ATTEND Internal Medicine
DX: M94.0 Chondrocostal junction syndrome [Tietze] (principal); I45.10 Unspecified right bundle-branch block; I48.0 Paroxysmal atrial fibrillation; I10 Essential (primary) hypertension; R07.89 Other chest pain; I25.10 Atherosclerotic heart disease of native coronary artery without angina pectoris; E78.5 Hyperlipidemia, unspecified; M19.91 Primary osteoarthritis, unspecified site; E03.9 Hypothyroidism, unspecified; E66.9 Obesity, unspecified; F41.1 Generalized anxiety disorder; M46.92 Unspecified inflammatory spondylopathy, cervical region; I25.2 Old myocardial infarction; Z79.82 Long term (current) use of aspirin; Z79.02 Long term (current) use of antithrombotics/antiplatelets; Z79.899 Other long term (current) drug therapy; Z68.37 Body mass index [BMI] 37.0-37.9, adult; Z95.5 Presence of coronary angioplasty implant and graft; Z90.710 Acquired absence of both cervix and uterus; Z87.891 Personal history of nicotine dependence; Z88.0 Allergy status to penicillin; Z88.1 Allergy status to other antibiotic agents; Z88.2 Allergy status to sulfonamides; Z88.8 Allergy status to other drugs, medicaments and biological substances; Z82.49 Family history of ischemic heart disease and other diseases of the circulatory system
CPT/HCPCS: 36415; 71020; 78452; 80048; 80053; 80061; 81001; 82550; 82553; 83735; 84443; 84484; 85025; 85610; 85730; 87086; 93005; 93017; 93306; 96374; 99285

== ENCOUNTER → 2017-06-13 | Outpatient (CLI) | payer MEDICARE, BC ==
--- NOTE | 2017-06-13 23:00 | CT ---
EXAMINATION TYPE: CT chest w con DATE OF EXAM: 06/13/2017 COMPARISON: 07/11/2016, 03/13/2016 HISTORY: 76-year-old female Follow-up lung nodule. TECHNIQUE: Contiguous axial scanning of the chest after the administration of 100 mL of Omnipaque 300 . Coronal/sagittal reconstructions performed. CT DLP: 633.00mGycm. Automatic exposure control utilized for a dose reduction. FINDINGS: The heart is normal size without pericardial effusion. Dense mitral annular calcifications are presen t as well as extensive coronary vessel calcifications which are unremarkable disease. Ascending aorta ectatic and 3.7 cm. There is conventional arterial vessel branching anatomy with mild to moderate atherosclerotic calcifications throughout the aorta. Nonenlarged and borderline enlarged mediastinal lymph nodes are present measuring up to 9 mm in the A P window and 9 mm in the right tracheobronchial angle. There is redemonstrated thickening along the central nico-bronchovascular bundles which is stable to minimally improved from 03/13/2016. Again, it is suspected in part to represent bronchial lymphadenopa thy measuring up to 9 mm. There are scattered perihilar bronchovascular nodularity measuring up to 9 mm on the right, axial marcelo ge 16% 1.3 cm, on 03/13/2016. On the left, there are bronchovascular nodularity measures up to 1.9 cm versus 2.2 cm on 03/13/2016. Number nodule or areas of present particularly in the upper and mid lungs . No cavitary lesions are new and enlarging lesions are seen. Strandy areas of atelectasis or scarrin g at the anterior right base. Visualized upper abdomen shows continued atherosclerotic calcifications in the upper abdominal aorta and celiac axis. Partially visualized colonic diverticulosis. Bones: Multilevel degenerative changes throughout the spine. IMPRESSION: Redemonstrated borderline mediastinal and hilar lymphadenopathy with thickening of the peribronchovas cular bundles and peribronchovascular nodularity. This nodularity measures up to 9 mm on the right ve rsus 1.3 cm on 03/13/2016 and up to 1.9 cm on the left versus 2.2 cm, previously. Findings suggest an inflammatory etiology. Some differential possibilities include sarcoidosis or other granulomatous dis ease, pneumoconiosis, and fungal/mycobacterial infections. Stable to decreasing size of nodules makes a neoplastic etiology unlikely. Continued follow-up recommended.
== END | disposition home or self-care (01) ==
LOC: RADCTMAIN 17:30
PROVIDERS: ATTEND Internal Medicine
DX: J98.09 Other diseases of bronchus, not elsewhere classified (principal); R59.1 Generalized enlarged lymph nodes
CPT/HCPCS: 71260; Q9967

== ENCOUNTER → 2018-11-11 | Outpatient (CLI) | payer MEDICARE, BC ==
[2018-11-11 16:29] LABS: LDL Cholesterol,Calculated 63.6 mg/dL (0.0-131.0); VLDL Calculation 51.4 mg/dL (5.00-40.00)
== END ==
LOC: LABWHC1 09:34
PROVIDERS: ATTEND Internal Medicine Cardiovascular Disease
DX: E78.2 Mixed hyperlipidemia (principal)
CPT/HCPCS: 36415; 80061; 84450; 84460

== ENCOUNTER 2018-12-28 13:30 | Emergency (ER) | payer MEDICARE, BC ==
[2018-12-28] MEDS ORDERED: PANTOPRAZOLE 40 MG/10 ML VIAL IVP STA (14:02)
[2018-12-28] MEDS ORDERED: SODIUM CHLORIDE 0.9% 1,000 ML IV STA ×2 (14:02)
[2018-12-28] MEDS ORDERED: ONDANSETRON 4 MG/2 ML VIAL IVP STA (14:02)
--- NOTE | 2018-12-28 14:03 | ED ---
Nausea/Vomiting/Diarrhea HPI - General Chief complaint: Nausea/Vomiting/Diarrhea Stated complaint: Vomiting Time Seen by Provider: 12/28/18 14:01 Source: patient, RN notes reviewed, old records reviewed Mode of arrival: ambulatory Limitations: no limitations - History of Present Illness Initial comments: This is a 78 showed female the ER with persistent nausea vomiting and diarrhea. Patient has no abdominal pain. 3-4 days of nausea vomiting. No fevers. No new medications. No sick contacts no travel history no fevers. MD complaint: nausea, vomiting, diarrhea -: days(s) (5) Description of Vomiting: food contents, watery Description of Diarrhea: water Associated Abdominal Pain: No Radiation: none Consistency: intermittent Improves with: none Worsens with: eating, vomiting Associated Symptoms: nausea/vomiting, weakness - Related Data Home Medications Medication Instructions Recorded Confirmed Atenolol [Tenormin] 25 mg PO DAILY 09/05/16 12/28/18 Atorvastatin Calcium 40 mg PO HS 09/05/16 12/28/18 Isosorbide Mononitrate [Isosorbide 30 mg PO DAILY 09/05/16 12/28/18 Mononitrate ER] Levothyroxine Sodium [Synthroid] 50 mcg PO DAILY 09/05/16 12/28/18 Lisinopril 20 mg PO DAILY 09/05/16 12/28/18 Multivitamins, Thera [Multivitamin 1 tab PO DAILY 09/05/16 12/28/18 (formulary)] ALPRAZolam [Xanax] 0.5 mg PO BID 12/28/18 12/28/18 Nystatin 100,000Unit/gm Cream 1 applic TOPICAL BID PRN 12/28/18 12/28/18 [Mycostatin Cream] amLODIPine [Norvasc] 10 mg PO DAILY 12/28/18 12/28/18 Previous Rx's Medication Instructions Recorded Apixaban [Eliquis] 5 mg PO BID #60 tab 06/10/17 Ondansetron [Zofran] 4 mg PO Q8HR PRN #30 tab 12/28/18 Allergies Allergy/AdvReac Type Severity Reaction Status Date / Time erythromycin base Allergy Rash/Hives Verified 12/28/18 14:14 Penicillins Allergy Unknown Verified 12/28/18 14:14 Childhood sulfamethoxazole Allergy Rash/Hives Verified 12/28/18 14:14 [From ] trimethoprim [From ] Allergy Rash/Hives Verified 12/28/18 14:14 Review of Systems ROS Statement: Those systems with pertinent positive or pertinent negative responses have been documented in the HPI. ROS Other: All systems not noted in ROS Statement are negative. Past Medical History Past Medical History: Coronary Artery Disease (CAD), Hyperlipidemia, Hypertension, Osteoarthritis (OA) Additional Past Medical History / Comment(s): bronchoscopy (September 2016)- found nodules History of Any Multi-Drug Resistant Organisms: None Reported Past Surgical History: Adenoidectomy, Heart Catheterization With Stent, Hysterectomy Additional Past Surgical History / Comment(s): carotidendartectomy Past Anesthesia/Blood Transfusion Reactions: No Reported Reaction Date of Last Stent Placement:: 2005 Past Psychological History: Anxiety Smoking Status: Never smoker Past Alcohol Use History: Occasional Past Drug Use History: None Reported - Past Family History Mother Family Medical History: No Reported History Father Family Medical History: Hypertension, Myocardial Infarction (MO) General Exam Limitations: no limitations General appearance: alert, in no apparent distress Head exam: Present: atraumatic, normocephalic, normal inspection Eye exam: Present: normal appearance, PERRL, EOMI. Absent: scleral icterus, conjunctival injection, periorbital swelling ENT exam: Present: normal exam, mucous membranes moist Neck exam: Present: normal inspection. Absent: tenderness, meningismus, lymphadenopathy Respiratory exam: Present: normal lung sounds bilaterally. Absent: respiratory distress, wheezes, rales, rhonchi, stridor Cardiovascular Exam: Present: regular rate, normal rhythm, normal heart sounds. Absent: systolic murmur, diastolic murmur, rubs, gallop, clicks GI/Abdominal exam: Present: soft, normal bowel sounds. Absent: distended, tenderness, guarding, rebound, rigid Extremities exam: Present: normal inspection, full ROM, normal capillary refill. Absent: tenderness, pedal edema, joint swelling, calf tenderness Back exam: Present: normal inspection Neurological exam: Present: alert, oriented X3, CN II-XII intact Psychiatric exam: Present: normal affect, normal mood Skin exam: Present: warm, dry, intact, normal color. Absent: rash Course Vital Signs 12/28/18 12/28/18 13:54 15:00 Temperature 98.8 F Pulse Rate 89 78 Respiratory 18 20 Rate Blood Pressure 143/79 133/60 O2 Sat by Pulse 98 98 Oximetry - Reevaluation(s) Reevaluation #1: 12/28/18 16:04 Medical record is reviewed and noncontributory Reevaluation #2: 12/28/18 16:04 A she is feeling better with IV hydration Medical Decision Making - Medical Decision Making 78 female the ER with nausea vomiting diarrhea left lites are normal. Patient will be given antiemetics and can be discharged home - Lab Data Result diagrams: 12/28/18 14:20 12/28/18 14:20 Lab Results 12/28/18 12/28/18 Range/Units 14:20 14:20 WBC 8.0 (3.8-10.6) k/uL RBC 4.34 (3.80-5.40) m/uL Hgb 12.8 (11.4-16.0) gm/dL Hct 39.9 (34.0-46.0) % MCV 91.9 (80.0-100.0) fL MCH 29.6 (25.0-35.0) pg MCHC 32.2 (31.0-37.0) g/dL RDW 14.0 (11.5-15.5) % Plt Count 417 (150-450) k/uL Neutrophils % 70 % Lymphocytes % 18 % Monocytes % 7 % Eosinophils % 4 % Basophils % 1 % Neutrophils # 5.6 (1.3-7.7) k/uL Lymphocytes # 1.4 (1.0-4.8) k/uL Monocytes # 0.5 (0-1.0) k/uL Eosinophils # 0.4 (0-0.7) k/uL Basophils # 0.1 (0-0.2) k/uL Sodium 138 (137-145) mmol/L Potassium 4.3 (3.5-5.1) mmol/L Chloride 107 (98-107) mmol/L Carbon Dioxide 22 (22-30) mmol/L Anion Gap 9 mmol/L BUN 13 (7-17) mg/dL Creatinine 0.75 (0.52-1.04) mg/dL Est GFR (CKD-EPI)AfAm 90 (>60 ml/min/1.73 sqM) Est GFR (CKD-EPI)NonAf 78 (>60 ml/min/1.73 sqM) Glucose 113 H (74-99) mg/dL Calcium 9.4 (8.4-10.2) mg/dL Total Bilirubin 0.8 (0.2-1.3) mg/dL AST 21 (14-36) U/L ALT 25 (9-52) U/L Alkaline Phosphatase 76 (38-126) U/L Total Protein 6.5 (6.3-8.2) g/dL Albumin 3.9 (3.5-5.0) g/dL Lipase 40 (23-300) U/L Disposition Clinical Impression: Dehydration, Nausea & vomiting Disposition: HOME SELF-CARE Condition: Good Instructions (If sedation given, give patient instructions): Acute Nausea and Vomiting (ED) Prescriptions: Ondansetron [Zofran] 4 mg PO Q8HR PRN #30 tab PRN Reason: Nausea Is patient prescribed a controlled substance at d/c from ED?: No Referrals: Dayday Swanson MD [Primary Care Provider] - 1-2 days
[2018-12-28 14:43] LABS: Basophils # (A) 0.1 k/uL (0-0.2); Basophils % (A) 1 %; Eosinophils # (A) 0.4 k/uL (0-0.7); Eosinophils % (A) 4 %; HCT 39.9 % (34.0-46.0); HGB 12.8 gm/dL (11.4-16.0); Lymphocytes # (A) 1.4 k/uL (1.0-4.8); Lymphocytes % (A) 18 %; MCH 29.6 pg (25.0-35.0); MCHC 32.2 g/dL (31.0-37.0); MCV 91.9 fL (80.0-100.0); Mean Platelet Volume 8.7; Monocytes # (A) 0.5 k/uL (0-1.0); Monocytes % (A) 7 %; Neutrophils # (A) 5.6 k/uL (1.3-7.7); Neutrophils % (A) 70 %; Platelet Count 417 k/uL (150-450); RBC 4.34 m/uL (3.80-5.40)
[2018-12-28 14:51] LABS: Albumin 3.9 g/dL (3.5-5.0); Calcium 9.4 mg/dL (8.4-10.2); Potassium 4.3 mmol/L (3.5-5.1); Total Bilirubin 0.8 mg/dL (0.2-1.3); Total Protein 6.5 g/dL (6.3-8.2)
--- NOTE | 2018-12-28 15:05 | XR ---
EXAMINATION TYPE: XR KUB DATE OF EXAM: 12/28/2018 COMPARISON: None INDICATION: Nausea vomiting diarrhea for 6 days TECHNIQUE: Single view abdomen upright view FINDINGS: Nonspecific bowel gas is present. No free air is evident. No suspicious differential air-fluid levels are present. Air appears to be within small bowel loops as well as the colon. No dilated small bowel loops are evident suggest obstruction. Psoas margins are normal. No organomegaly is present. IMPRESSION: 1. Nonspecific abdomen.
[2018-12-28 16:25] VITALS: BP 124/96; PULSE 76; RESP 18; TEMP 98.4
== END 2018-12-28 16:35 | disposition home or self-care (01) ==
LOC: EC 13:30
DX: E86.0 Dehydration (principal); R11.2 Nausea with vomiting, unspecified; R19.7 Diarrhea, unspecified; I25.10 Atherosclerotic heart disease of native coronary artery without angina pectoris; E78.5 Hyperlipidemia, unspecified; I10 Essential (primary) hypertension; F41.9 Anxiety disorder, unspecified; Z79.899 Other long term (current) drug therapy; Z79.890 Hormone replacement therapy; Z88.0 Allergy status to penicillin; Z88.1 Allergy status to other antibiotic agents; Z88.2 Allergy status to sulfonamides; Z95.5 Presence of coronary angioplasty implant and graft
CPT/HCPCS: 36415; 80053; 83690; 85025; 74018; 99284; 96374; 96375; 96361 ×2; J2405; C9113

== ENCOUNTER → 2019-04-15 | Outpatient (CLI) | payer MEDICARE, BC ==
--- NOTE | 2019-04-16 11:04 | MM ---
Reason for exam: screening (asymptomatic). Last mammogram was performed 2 years ago. History: Patient is postmenopausal. Physical Findings: A clinical breast exam by your physician is recommended on an annual basis and results should be correlated with mammographic findings. MG Screening Mammo w CAD Bilateral CC and MLO view(s) were taken. Prior study comparison: April 15, 2017, bilateral MG screening mammo w CAD. March 09, 2015, bilateral MG screening mammo w CAD. There are scattered fibroglandular densities. There are benign appearing vascular calcifications in the right breast. There is chronic nodularity in the left breast. There is no discrete abnormality. ASSESSMENT: Benign, BI-RAD 2 RECOMMENDATION: Routine screening mammogram of both breasts in 1 year.
== END | disposition home or self-care (01) ==
LOC: RADMAMWWP 10:51
PROVIDERS: ATTEND Internal Medicine
DX: Z12.31 Encounter for screening mammogram for malignant neoplasm of breast (principal)
CPT/HCPCS: 77067

== ENCOUNTER 2019-04-22 08:10 | Day surgery (SDC) | payer MEDICARE, BC ==
[2019-04-20 15:58] VITALS: BMI 35.8
[~2019-04-22 08:10] MED LIST: LACTATED RINGERS 1,000 ML IV SCH; LIDOCAINE 1% 20 ML VIAL (10MG/ML) FOR IV START INTRADERMA PRN
[2019-04-22 08:43] VITALS: RESP 16; TEMP 97.5
[2019-04-22] MEDS ORDERED: PROPOFOL 10 MG/ML 20 ML VIAL IV ONE (09:14)
[2019-04-22] MEDS ORDERED: LIDOCAINE 1% INJ 10MG/ML (20 ML MDV) ONE (09:14)
--- NOTE | 2019-04-22 09:39 | P.PCN ---
Date of Procedure: 04/22/19 Procedure(s) Performed: BRIEF HISTORY: Patient is a 78-year-old pleasant white female scheduled for an elective colonoscopy as a part of the lesion of prior history of colon polyps. Last colonoscopy was 5 years ago. PROCEDURE PERFORMED: Colonoscopy with snare polypectomy. PREOPERATIVE DIAGNOSIS: History of colon polyps. IV sedation per Anesthesia. PROCEDURE: After informed consent was obtained, the patient, was brought into the endoscopy unit. IV sedation was administered by Anesthesia under continuous monitoring. Digital rectal examination was normal. Initially the Olympus CF-160 flexible video colonoscope was then inserted in the rectum, gradually advanced into the cecum without any difficulty. Careful examination was performed as the scope was gradually being withdrawn. Ileocecal valve and the appendiceal orifice were visualized and appeared normal. Prep was excellent. Mucosa of the cecum, ascending colon, transverse colon appeared normal. In the descending colon there was a 5 mm sessile polyp that was removed by snare polypectomy. Rest of the descending colon, sigmoid colon, and rectum appeared normal. Scattered left-sided diverticulosis seen. Retroflexion was performed in the rectum and no lesions were seen. The patient tolerated the procedure well. IMPRESSION: 5 mm sessile ascending colon polyp status post polypectomy Scattered sigmoidal diverticulosis. RECOMMENDATIONS: Findings of this examination were discussed with the patient as well as a family. She was advised to follow with the biopsy results. If the biopsy is an adenoma, she can have a repeat colonoscopy in 5 years.
[2019-04-22 09:54] VITALS: BP 113/64; PULSE 55
== END 2019-04-22 10:34 | disposition home or self-care (01) ==
LOC: ORWHC2ENDO 08:10
PROVIDERS: ATTEND Internal Medicine Gastroenterology
DX: Z86.010 Personal history of colon polyps (principal); D12.2 Benign neoplasm of ascending colon; D12.4 Benign neoplasm of descending colon; Z88.1 Allergy status to other antibiotic agents; Z88.0 Allergy status to penicillin; Z88.2 Allergy status to sulfonamides; Z88.8 Allergy status to other drugs, medicaments and biological substances; I25.10 Atherosclerotic heart disease of native coronary artery without angina pectoris; I10 Essential (primary) hypertension; E78.5 Hyperlipidemia, unspecified; I48.91 Unspecified atrial fibrillation; E07.9 Disorder of thyroid, unspecified; Z79.82 Long term (current) use of aspirin; Z79.890 Hormone replacement therapy; Z79.899 Other long term (current) drug therapy
CPT/HCPCS: 88305; 45385; J2001; J2704

== ENCOUNTER → 2019-12-14 | Outpatient (CLI) | payer MEDICARE, BC ==
--- NOTE | 2019-12-14 10:52 | XR ---
EXAMINATION TYPE: XR chest 2V DATE OF EXAM: 12/14/2019 COMPARISON: 06/08/2017 HISTORY: Shortness of breath and cough TECHNIQUE: Frontal and lateral views of the chest are obtained. FINDINGS: New patchy right infrahilar airspace disease is seen. Chronic interstitial prominence. Ext ensive atherosclerosis of the thoracic aorta. Cardiomediastinal silhouette is stable. Diffuse osseous demineralization and moderate degenerative change of the spine. IMPRESSION: New patchy right infrahilar airspace disease may atelectasis or pneumonia in the appropr iate clinical setting.
== END | disposition home or self-care (01) ==
LOC: RADXRMAIN 10:11
PROVIDERS: ATTEND Family Medicine
DX: R06.02 Shortness of breath (principal)
CPT/HCPCS: 71046

== ENCOUNTER → 2020-01-08 | Outpatient (CLI) | payer MEDICARE, BC ==
--- NOTE | 2020-01-08 14:56 | CT ---
EXAMINATION TYPE: CT chest wo con DATE OF EXAM: 01/08/2020 COMPARISON: 06/13/2017 HISTORY: Pneumonia CT DLP: 513 mGycm, Automated exposure control for dose reduction was used. CONTRAST: Performed injected with 0 mL of Isovue 300. TECHNIQUE: Axial images were obtained at 5 mm thick sections. Reconstructed images are reviewed on [employer] computer in the coronal plane. FINDINGS: Thyroid is poorly visualized. There is a new posterior medial right lung apex area of pneumonitis. Stable calcified areas within th e right upper lung field. A left upper lung field area has enlarged from 1.9 to 2.3 cm. Series 4 imag e 21. Infrahilar thickening of the right middle lobe is present. Stable right middle lobe findings ar e present. No enlarged mediastinal or hilar adenopathy is evident. Multiple shotty lymph nodes are present. The ascending aorta diameter at the level of the main pulmonary artery is 3.8 cm. The main pulmonary ar shivam diameter at the bifurcation is 3.2 cm. Moderate coronary artery calcification is present. Limited CT sections are obtained through the upper abdomen. Abdomen is essentially unremarkable. IMPRESSIONS: 1. There is a new focal area of pneumonitis within the right upper lobe posteriorly 2. Left upper lobe focal area of increased density has increased in size over the interval. 3.Stable appearance of some perihilar increased soft tissue as well as scattered areas of pneumonitis .
== END | disposition home or self-care (01) ==
LOC: RADCTMAIN 11:36
PROVIDERS: ATTEND Family Medicine
DX: J18.9 Pneumonia, unspecified organism (principal); J98.4 Other disorders of lung; M79.89 Other specified soft tissue disorders
CPT/HCPCS: 71250

== ENCOUNTER → 2020-01-19 | Outpatient (CLI) | payer MEDICARE, BC ==
[2020-01-19 19:04] LABS: African American GFR (CKD) 45.8 (60.0-200.0); Albumin 4.7 g/dL (3.80-4.90); Albumin/Globulin Ratio 2.24 (1.60-3.17); Anion Gap 13.3 mmol/L (4.00-12.00); BUN/Creat Ratio 13.08 Ratio (12.00-20.00); C Reactive Protein, High Sens 1.49 mg/L (0.000-3.000); Calcium 9.6 mg/dL (8.7-10.3); Carbon Dioxide 25.7 mmol/L (21.6-31.8); Globulin 2.1 g/dL (1.6-3.3); Non-African American GFR(CKD) 39.5 (60.0-200.0); Potassium 4.4 mmol/L (3.5-5.5); Total Bilirubin 0.6 mg/dL (0.3-1.2); Total Protein 6.8 g/dL (6.2-8.2)
== END | disposition home or self-care (01) ==
LOC: LABWHC1 14:36
PROVIDERS: ATTEND Internal Medicine Critical Care Medicine
DX: R05 Cough (principal); R10.13 Epigastric pain; D86.9 Sarcoidosis, unspecified
CPT/HCPCS: 36415; 80053; 82164; 85652; 86141

== ENCOUNTER → 2020-01-23 | Outpatient (CLI) | payer MEDICARE, BC ==
--- NOTE | 2020-01-26 06:46 | PE ---
EXAMINATION TYPE: PET CT fusion skull to thigh DATE OF EXAM: 01/23/2020 COMPARISON: Chest CT January 08, 2020 and older CTs HISTORY: Bilateral lung cancer suspected. Recent abnormal CT. TECHNIQUE: Following the intravenous administration of 10.39 mCi of F-18 FDG, whole body images are performed from the skull base to the midthigh. Images are reviewed on the computer in the coronal, a xial, and sagittal planes. Reconstructed rotating images are created on independent workstation and reviewed on the computer. A noncontrast CT is performed in conjunction with the PET scan. SCAN: Initial Scan FINDINGS: SKULL BASE AND NECK: No areas of suspicious hypermetabolic uptake. CHEST, MEDIASTINUM, AND HILAR REGION: Background of mild emphysematous change with areas of nodularit y and/or nodular consolidation centered bilateral hilar region are redemonstrated not significantly c hanged from 2017 CT. There is abnormal hypermetabolic uptake bilaterally. Max SUV right hilar region is 6.37. Right suprahilar extension is noted. Max SUV left hilar region is more prominent at 9.76 axi al image 89. Persistent abnormal thoracic lymph nodes identified. For reference paratracheal 1.1 x 1.0 cm lymph no de axial image 79 shows mild hypermetabolic uptake, max SUV is 4.5. For reference abnormal subcarinal lymph node axial image 91 measures 2.2 x 1.1 cm with hypermetabolic uptake, max SUV is 8.02. Abnorma l hypermetabolic prevascular and AP window lymph nodes are present. ABDOMEN AND PELVIS: No areas of abnormal hypermetabolic uptake. Normal excretion. OSSEOUS STRUCTURES: No areas of abnormal hypermetabolic uptake. OTHER CT: Fairly severe calcified plaque bilateral carotid bulb level, consider carotid ultrasound fo llow-up to further evaluate. Enlarged main pulmonary artery is 3.1 cm axial image 89, CT findings suggesting underlying pulmonary artery hypertension. Mild right greater than left bibasilar linear scarring. Coronary artery calcific ations and/or stents are felt present. Calcification at level of mitral valve. Moderate to severe calcified plaque abdominal aorta with extension into iliac branch vessels. Sigmoid colonic diverticula. Uterus surgically absent. Inferior bowel prolapse noted. IMPRESSION: Abnormal hypermetabolic uptake in thoracic lymph nodes and bilateral perihilar nodules an d/or nodular consolidation. Overall not significant progression in size of lesions from 2017 CT would argue against a neoplastic etiology and favor inflammatory process such as sarcoidosis. Strict clini lima correlation. Bronchoscopy with sampling May be beneficial.
== END | disposition home or self-care (01) ==
LOC: RADPETMAIN 11:00
PROVIDERS: ATTEND Internal Medicine Critical Care Medicine
DX: R59.0 Localized enlarged lymph nodes (principal); R91.8 Other nonspecific abnormal finding of lung field
CPT/HCPCS: 78815

== ENCOUNTER → 2020-05-31 | Outpatient (CLI) | payer MEDICARE, BC ==
[2020-05-31 16:23] LABS: Chol/HDL Ratio 3.16; LDL Cholesterol,Calculated 52.4 mg/dL (0.0-131.0); VLDL Calculation 29.6 mg/dL (5.00-40.00)
== END | disposition home or self-care (01) ==
LOC: LABWHC1 09:56
PROVIDERS: ATTEND Internal Medicine Cardiovascular Disease
DX: E78.2 Mixed hyperlipidemia (principal)
CPT/HCPCS: 36415; 80061; 84450; 84460

== ENCOUNTER → 2021-04-08 | Outpatient (CLI) | payer MEDICARE, BC ==
--- NOTE | 2021-04-08 11:15 | MR ---
EXAMINATION TYPE: MR iac wo/w con DATE OF EXAM: 04/08/2021 COMPARISON: None HISTORY: Acoustic nerve disorder, Rt hearing loss TECHNIQUE: Multiplanar, multisequence images of the brain and brainstem is performed without and with IV contras t, utilizing 10 mL intravenous Gadavist . FINDINGS: On the T1-weighted sagittal images, the midline structures including the craniovertebral junction rel ationships appear normal. The ventricles, basal cisterns and sulci over the convexities are within normal limits and there is n o mass effect or shift of the midline structures. There is mild to moderate multifocal areas of abnormal increased signal intensity in the white matter both cerebral hemispheres most likely consistent with chronic ischemic white matter change. Based on diffusion-weighted imaging there is no diffusion restriction or acute ischemic event. High-resolution imaging of the posterior fossa reveals no abnormality. The fourth ventricle, cerebell ar pontine angles and internal auditory canals and contents appear normal and symmetric. There is no pathologic enhancement. IMPRESSION: 1. No abnormality of the internal auditory canals are contents bilaterally. 2. Mild to moderate chronic ischemic white matter change. 3. No acute ischemic event or pathological enhancement throughout the brain parenchyma. 4. No mass, mass effect or shift of midline structures. No hydrocephalus.
== END | disposition home or self-care (01) ==
LOC: RADMRIMAIN 09:36
PROVIDERS: ATTEND Otolaryngology
DX: I67.82 Cerebral ischemia (principal)
CPT/HCPCS: 70553; A9585

== ENCOUNTER → 2022-01-05 | Outpatient (CLI) | payer MEDICARE, BC ==
[2022-01-05 18:53] LABS: HCT 42.7 % (37.2-46.3); HGB 13.2 g/dL (12.0-15.0); MCH 28.9 pg (27.0-32.0); MCHC 30.9 g/dL (32.0-37.0); MCV 93.4 fL (80.0-97.0); NRBC Per 100 WBC 0 /100 WBCS (0.0-0.0); Platelet Count 300 X 10*3/uL (140-440); RBC 4.57 X 10*6/uL (4.10-5.20); WBC 7.29 X 10*3/uL (4.50-10.00)
[2022-01-05 23:05] LABS: African American GFR (CKD) 83.7 (60.0-200.0); Anion Gap 14.4 mmol/L (10.00-18.00); Blood Urea Nitrogen 12.6 mg/dL (9.0-27.0); Carbon Dioxide 21.1 mmol/L (20.0-27.5); Non-African American GFR(CKD) 72.2 (60.0-200.0); Potassium 4.1 mmol/L (3.5-5.5)
== END | disposition home or self-care (01) ==
LOC: LABPAT 10:36
PROVIDERS: ATTEND Internal Medicine Interventional Cardiology
DX: Z01.812 Encounter for preprocedural laboratory examination (principal); I65.23 Occlusion and stenosis of bilateral carotid arteries
CPT/HCPCS: 80051; 82565; 84520; 85027

== ENCOUNTER 2022-01-17 07:19 | Day surgery (SDC) | payer MEDICARE, BC ==
[2022-01-15 14:25] VITALS: BMI 19.7
[~2022-01-17 07:19] MED LIST changes: +ALPRAZolam 0.25 MG TAB PO PRN; +ALPRAZolam 0.5 MG TAB PO PRN; +ASPIRIN 325 MG TAB PO PRN; +ASPIRIN 81 MG PO PRN; +CLINDAMYCIN 600 MG in SODIUM CHLORIDE 0.9% 250 ML IRRIGATION PRN; +CLINDAMYCIN 900 MG in DEXTROSE 5% IN WATER 50 ML IVPB PRN; +CLOPIDOGREL 75 MG TAB PO PRN; -LACTATED RINGERS 1,000 ML IV SCH; -LIDOCAINE 1% 20 ML VIAL (10MG/ML) FOR IV START INTRADERMA PRN; +NITROGLYCERIN SL TABS 0.4 MG TAB SUBLINGUAL PRN; +SODIUM CHLORIDE 0.9% 1,000 ML in EMPTY BAG 1 BAG IV ONE
[2022-01-17] MEDS ORDERED: SODIUM CHLORIDE 0.9% 1,000 ML IV ONE (07:22)
[2022-01-17] MEDS ORDERED: LIDOCAINE 1% INJ 10MG/ML (20 ML MDV) ONE (08:23)
[2022-01-17] MEDS ORDERED: HEPARIN SODIUM 1,000 UN/ML (10ML VL) ONE (08:57)
[2022-01-17] MEDS ORDERED: RX INFO: IV CONTRAST WAS GIVEN 1 EACH MISC MISCELLANE PRN (09:00)
[2022-01-17] MEDS ORDERED: IOPAMIDOL-250 100ML BTL INTRAARTER ONE (09:32)
[2022-01-17] MEDS ORDERED: ATROPINE SULFATE 0.1 MG/ML 10ML SYRINGE IV PRN (09:55)
[2022-01-17] MEDS ORDERED: MAG HYDROX/AL HYDROX/SIMETH 30 ML CUP PO PRN (09:55)
[2022-01-17] MEDS ORDERED: SODIUM CHLORIDE 0.9% 1,000 ML IV SCH (10:00)
--- NOTE | 2022-01-17 10:00 | P.PCN ---
Date of Procedure: 01/17/22 Operative Findings: CAROTID ARTERY STENTING Performing physician Thor Mccloud MD Procedure performed #1 successful stenting of the left internal carotid artery using 97 x 40 mm Xact stent with an excellent angiographic results with adjunctive use of filter wire #2 selective left common and left internal carotid angiogram #3 intracranial angiogram #4 selective right common femoral artery angiogram #5 ultrasound guided access of the right common femoral artery #6 selective right common femoral artery angiogram Indication The patient is a pleasant 81-year-old female patient who sees Dr. 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 Procedure description After obtaining an informed consent the patient was brought to the cardiac chemical processing laborer. Under ultrasound guidance the right common femoral artery was cannulated using micropuncture technique, the micropuncture wire passed easily then I placed a 6- Italian 90 cm shuttle sheath at the right common femoral artery. The sheath was advanced all the way to the descending aorta. After that an aortic arch angiogram was performed using a pigtail catheter with hand injection. At that point anticoagulation was initiated using heparin with continuous ACT monitoring throughout the case After that I did selective the takeoff of the left common carotid artery from the aortic arch. I did selective that using JB2 catheter. After that the wire which was super core wire was advanced to the left common carotid artery and the catheter was attempted to advise but I was unable but I was able to advise multipurpose catheter. Then the sheath was advanced over the wire and multipurpose catheter to the mid left common carotid artery. Carotid angiogram was performed and identified the critical lesion in the takeoff of the left internal carotid artery. Subsequently I did wire the lesion using the filter wire and the filter was deployed under fluoroscopy guidance. After that I did do predilatation 4 mm balloon. Subsequently the stent was deployed under fluoroscopy guidance and then I postdilated using 5 mm balloon. The final angiogram showed good angiographic results. I did exchange my long sheath into short sheath using 035 stiff wire. Then I did selective right common femoral artery angiogram The procedure was completed without any complication Procedure management Dual antiplatelet therapy Risk factor modification Follow-up with the patient
--- NOTE | 2022-01-17 10:56 | IR ---
EXAMINATION TYPE: IR stent intravas non coronary DATE OF EXAM: 01/17/2022 COMPARISON: NONE HISTORY: Fluoroscopy time. Fluoroscopy was provided to the referring clinician.
[2022-01-17] MEDS ORDERED: ATORVASTATIN 40 MG TAB PO SCH ×2 (21:00)
[2022-01-17] MEDS: METOPROLOL TARTRATE 25 MG TAB PO SCH (21:09)
[2022-01-17] MEDS: APIXABAN 2.5 MG TABLET PO SCH (21:09)
[2022-01-18] MEDS ORDERED: LEVOTHYROXINE 50 MCG TAB PO SCH (06:30)
[2022-01-18 07:50] LABS: Basophils # (A) 0.1 k/uL (0-0.2); Basophils % (A) 1 %; Eosinophils # (A) 0.1 k/uL (0-0.7); Eosinophils % (A) 2 %; HCT 35.9 % (34.0-46.0); HGB 11.8 gm/dL (11.4-16.0); Lymphocytes # (A) 1.1 k/uL (1.0-4.8); Lymphocytes % (A) 18 %; MCH 31.7 pg (25.0-35.0); MCHC 32.9 g/dL (31.0-37.0); MCV 96.4 fL (80.0-100.0); Mean Platelet Volume 9.7; Monocytes # (A) 0.6 k/uL (0-1.0); Monocytes % (A) 9 %; Neutrophils # (A) 4.2 k/uL (1.3-7.7); Neutrophils % (A) 68 %; Platelet Count 206 k/uL (150-450); RBC 3.73 m/uL (3.80-5.40); RDW 13.2 % (11.5-15.5); WBC 6.2 k/uL (3.8-10.6)
[2022-01-18 08:16] LABS: African American GFR (CKD) >90 (>60 ml/min/1.73 sqM); Anion Gap 4 mmol/L; Blood Urea Nitrogen 12 mg/dL (7-17); Calcium 8.6 mg/dL (8.4-10.2); Carbon Dioxide 25 mmol/L (22-30); Chloride 108 mmol/L (98-107); Glucose 90 mg/dL (74-99); Non-African American GFR(CKD) 83 (>60 ml/min/1.73 sqM); Potassium 4.2 mmol/L (3.5-5.1); Sodium 137 mmol/L (137-145)
[2022-01-18] MEDS ORDERED: amLODIPine 10 MG TAB PO SCH (09:00)
[2022-01-18] MEDS ORDERED: lisinopriL 20 MG TAB PO SCH (09:00)
[2022-01-18] MEDS ORDERED: CLOPIDOGREL 75 MG TAB PO SCH (09:00)
[2022-01-18] MEDS ORDERED: ASPIRIN 81 MG PO SCH (09:00)
[2022-01-18] MEDS ORDERED: ISOSORBIDE MONONITRATE ER 30 MG TAB.ER.24H PO SCH (09:00)
[2022-01-18] MEDS: APIXABAN 2.5 MG TABLET PO SCH (09:38)
[2022-01-18] MEDS: METOPROLOL TARTRATE 25 MG TAB PO SCH (09:38)
--- NOTE | 2022-01-18 12:32 | P.DS ---
Providers Attending physician: Thor Mccloud Primary care physician: [facility] Course: The patient is a pleasant 81-year-old female patient who underwent yesterday successful stenting of the left internal carotid artery with a good angiographic results and without any complication She was seen this morning. She is asymptomatic. She is hemodynamically stable. The right groin is soft and nontender and without any bruises. The patient is going to be discharged home on antiplatelet and anticoagulation and she will follow-up with Dr. Drummond in a week in the office Plan - Discharge Summary Discharge Rx Participant: No New Discharge Prescriptions: New Clopidogrel Bisulfate [Plavix] 75 mg PO DAILY #90 tab Continue lisinopriL [Lisinopril] 20 mg PO DAILY Isosorbide Mononitrate [Isosorbide Mononitrate ER] 30 mg PO DAILY Atorvastatin Calcium 40 mg PO HS Levothyroxine Sodium [Synthroid] 50 mcg PO DAILY Apixaban [Eliquis] 5 mg PO BID #60 tab amLODIPine [Norvasc] 10 mg PO DAILY ALPRAZolam [Xanax] 0.5 mg PO BID PRN PRN Reason: Anxiety Metoprolol Tartrate [Lopressor] 25 mg PO BID Discontinued Aspirin 81 mg PO DAILY Discharge Medication List Atorvastatin Calcium 40 mg PO HS 09/05/16 [History] Isosorbide Mononitrate [Isosorbide Mononitrate ER] 30 mg PO DAILY 09/05/16 [History] Levothyroxine Sodium [Synthroid] 50 mcg PO DAILY 09/05/16 [History] lisinopriL [Lisinopril] 20 mg PO DAILY 09/05/16 [History] Apixaban [Eliquis] 5 mg PO BID #60 tab 06/10/17 [Rx] ALPRAZolam [Xanax] 0.5 mg PO BID PRN 12/28/18 [History] amLODIPine [Norvasc] 10 mg PO DAILY 12/28/18 [History] Metoprolol Tartrate [Lopressor] 25 mg PO BID 04/20/19 [History] Clopidogrel Bisulfate [Plavix] 75 mg PO DAILY #90 tab 01/18/22 [Rx] Follow up Appointment(s)/Referral(s): Fede Drummond MD [STAFF PHYSICIAN] - 1 Week Patient Instructions/Handouts: Local Anesthesia (DC), Carotid Artery Stent Placement (DC)
[2022-01-18 12:36] VITALS: BP 127/76; PULSE 81; RESP 16; TEMP 98
== END 2022-01-18 13:21 | disposition home health service (06) ==
LOC: CATHCVL 07:19 → 3SCARD 09:41 → CATHCVL 01-18 13:21
PROVIDERS: ATTEND Internal Medicine Interventional Cardiology
DX: I65.23 Occlusion and stenosis of bilateral carotid arteries (principal); Z79.890 Hormone replacement therapy; Z79.899 Other long term (current) drug therapy; Z20.822 Contact with and (suspected) exposure to COVID-19; I10 Essential (primary) hypertension; E78.2 Mixed hyperlipidemia; Z95.5 Presence of coronary angioplasty implant and graft; Z98.890 Other specified postprocedural states; I25.10 Atherosclerotic heart disease of native coronary artery without angina pectoris; Z82.49 Family history of ischemic heart disease and other diseases of the circulatory system; I34.0 Nonrheumatic mitral (valve) insufficiency; Z79.01 Long term (current) use of anticoagulants; Z79.82 Long term (current) use of aspirin; Z88.1 Allergy status to other antibiotic agents; Z88.0 Allergy status to penicillin
CPT/HCPCS: 37215; 80048; 85025; 87635; C1725 ×2; C1894 ×2; C1884; C1769 ×5; C1876; C1760; J1644; Q9966

== ENCOUNTER → 2022-07-04 | Outpatient (CLI) | payer MEDICARE, BC ==
[2022-07-04 15:58] LABS: ALT 13 U/L (8-44); AST 18 U/L (13-35); Chol/HDL Ratio 3.32 Ratio; LDL Cholesterol,Calculated 57.5 mg/dL (0.0-131.0)
== END | disposition home or self-care (01) ==
LOC: LABWHC1 09:11
PROVIDERS: ATTEND Internal Medicine Cardiovascular Disease
DX: E78.2 Mixed hyperlipidemia (principal)
CPT/HCPCS: 36415; 80061; 84450; 84460

== ENCOUNTER 2023-01-28 14:02 | Emergency (ER) | payer MEDICARE, BC ==
[2023-01-28 14:24] VITALS: TEMP 97.7
[2023-01-28] MEDS ORDERED: KETOROLAC 15 MG/ML 1 ML VIAL IVP STA (14:56)
[2023-01-28] MEDS ORDERED: METOCLOPRAMIDE 5 MG/ML 2 ML VIAL IVP STA (14:56)
[2023-01-28] MEDS ORDERED: SODIUM CHLORIDE 0.9% 1,000 ML IV STA (14:56)
[2023-01-28] MEDS ORDERED: FAMOTIDINE 20 MG/2 ML VIAL IV STA (14:57)
--- NOTE | 2023-01-28 14:59 | ED ---
General Adult HPI - General Chief complaint: Nausea/Vomiting/Diarrhea Stated complaint: vomiting Time Seen by Provider: 01/28/23 14:13 Source: patient, family, RN notes reviewed Mode of arrival: EMS Limitations: no limitations - History of Present Illness Initial comments: Patient is a pleasant 82-year-old female presenting to the emergency department with concerns with nausea vomiting. Onset of symptoms was around 11:00 after eating toast. No history of chronic problems. Patient does have some mild right upper abdominal discomfort. No history of previous gallbladder problems her surgery. No chest pain. No fever. patient diarrhea. Patient still remains nauseated. - Related Data Home Medications Medication Instructions Recorded Confirmed Atorvastatin Calcium 40 mg PO HS 09/05/16 01/28/23 Isosorbide Mononitrate [Isosorbide 30 mg PO DAILY 09/05/16 01/28/23 Mononitrate ER] Levothyroxine Sodium [Synthroid] 50 mcg PO DAILY 09/05/16 01/28/23 lisinopriL [Lisinopril] 20 mg PO DAILY 09/05/16 01/28/23 ALPRAZolam [Xanax] 0.5 mg PO BID PRN 12/28/18 01/28/23 amLODIPine [Norvasc] 10 mg PO DAILY 12/28/18 01/28/23 Metoprolol Tartrate [Lopressor] 25 mg PO BID 04/20/19 01/28/23 Multivitamins, Thera [Multivitamin 1 tab PO DAILY 01/28/23 01/28/23 (formulary)] Previous Rx's Medication Instructions Recorded Clopidogrel Bisulfate [Plavix] 75 mg PO DAILY #90 tab 01/18/22 Ketorolac [Toradol] 10 mg PO Q6HR PRN #15 tab 01/28/23 Metoclopramide HCl [Reglan] 10 mg PO Q6HR PRN #15 tablet 01/28/23 Tamsulosin [Flomax] 0.4 mg PO DAILY #14 cap 01/28/23 Allergies Allergy/AdvReac Type Severity Reaction Status Date / Time erythromycin base Allergy Rash/Hives Verified 01/28/23 16:55 Penicillins Allergy Unknown Verified 01/28/23 16:55 Childhood sulfamethoxazole Allergy Rash/Hives Verified 01/28/23 16:55 [From ] trimethoprim [From ] Allergy Rash/Hives Verified 01/28/23 16:55 Review of Systems ROS Statement: Those systems with pertinent positive or pertinent negative responses have been documented in the HPI. ROS Other: All systems not noted in ROS Statement are negative. Constitutional: Denies: fever Eyes: Denies: eye pain ENT: Denies: ear pain Respiratory: Denies: cough Cardiovascular: Denies: chest pain Gastrointestinal: Reports: as per HPI, abdominal pain, nausea, vomiting. Denies: diarrhea, constipation Musculoskeletal: Denies: back pain Skin: Denies: rash Neurological: Denies: weakness Past Medical History Past Medical History: Atrial Fibrillation, Coronary Artery Disease (CAD), Hyperlipidemia, Hypertension, Myocardial Infarction ([place]), Osteoarthritis (OA), Thyroid Disorder Additional Past Medical History / Comment(s): hx. colon polyps Last Myocardial Infarction Date:: 1993 History of Any Multi-Drug Resistant Organisms: None Reported Past Surgical History: Adenoidectomy, Heart Catheterization With Stent, Hysterectomy Additional Past Surgical History / Comment(s): right carotid endartectomy, bronchoscopy, colonoscopy Past Anesthesia/Blood Transfusion Reactions: No Reported Reaction Date of Last Stent Placement:: 2005 Past Psychological History: Anxiety Smoking Status: Never smoker Past Alcohol Use History: Occasional Past Drug Use History: None Reported - Past Family History Mother Family Medical History: No Reported History Father Family Medical History: Hypertension, Myocardial Infarction ([place]) General Exam Limitations: no limitations General appearance: alert, in no apparent distress Head exam: Present: atraumatic Eye exam: Present: normal appearance Neck exam: Present: normal inspection Respiratory exam: Present: normal lung sounds bilaterally Cardiovascular Exam: Present: regular rate Expanded Peripheral pulses: 2+: Dorsalis Pedis (R), Dorsalis Pedis (L) GI/Abdominal exam: Present: soft, tenderness (Mild tenderness right upper abdomen laterally), normal bowel sounds. Absent: distended, guarding, rebound, rigid, pulsatile mass Extremities exam: Present: normal inspection Neurological exam: Present: alert Psychiatric exam: Present: normal affect, normal mood Skin exam: Present: normal color Course Vital Signs 01/28/23 01/28/23 14:12 15:44 Temperature 97.7 F Pulse Rate 98 112 H Respiratory 20 22 Rate Blood Pressure 156/84 133/105 O2 Sat by Pulse 98 96 Oximetry EKG Findings - EKG Results: EKG: interpreted by LAUREND (Right bundle-branch block. Nonspecific ST-T.), normal axis EKG shows: tachycardia, atrial fibrillation Medical Decision Making - Medical Decision Making Was pt. sent in by a medical professional or institution (COLLEEN Gallegos, WOOD DRILL OPERATOR, urgent care, hospital, or [facility]...) When possible be specific @ -No Did you speak to anyone other than the patient for history (EMS, parent, family, police, friend...)? What history was obtained from this source @ -Son and are present and helps provide history Did you review nursing and triage notes (agree or disagree)? Why? @ -I reviewed and agree with nursing and triage notes Were old charts reviewed (outside hosp., previous admission, EMS record, old EKG, old radiological studies, urgent care reports/EKG's, [facility] records)? Report findings @ -No old charts were reviewed Differential Diagnosis (chest pain, altered mental status, abdominal pain women, abdominal pain men, vaginal bleeding, weakness, fever, dyspnea, syncope, headache, dizziness, GI bleed, back pain, seizure, CVA, palpatations, mental health)? @ -Differential Abdominal Pain Women: Appendicitis, Cholecystitis, diverticulosis, ischemic bowel, pancreatitis, hepatitis, UTI, gastroenteritis, AAA, incarcerated hernia, bowel obstruction, constipation, inflammatory bowel, hepatitis, peptic ulcer disease, splenic infarction, perforated viscus, vulvitis, ovarian torsion, PID, kidney stone, placenta abruption, this is not meant to be an all-inclusive list EKG interpreted by me (3pts min.). @ -As above X-rays interpreted by me (1pt min.). @ -Abdominal x-ray shows ureterolithiasis on the right CT interpreted by me (1pt min.). @ -None done U/S interpreted by me (1pt. min.). @ -Report reviewed What testing was considered but not performed or refused? (CT, X-rays, U/S, labs)? Why? @ -None What meds were considered but not given or refused? Why? @ -None Did you discuss the management of the patient with other professionals (professionals i.e. COLLEEN Gallegos, WOOD DRILL OPERATOR, lab, RT, psych nurse, child protective services social worker, receptionist clerk, t eacher, security vehicle patrol officer, senior case manager)? Give summary @ -No Was smoking cessation discussed for >3mins.? @ -No Was critical care preformed (if so, how long)? @ -No Were there social determinants of health that impacted care today? How? (Homelessness, low income, unemployed, alcoholism, drug addiction, transportation, low edu. Level, literacy, decrease access to med. care, fdc, rehab)? @ -No Was there de-escalation of care discussed even if they declined (Discuss DNR or withdrawal of care, Hospice)? DNR status @ -No What co-morbidities impacted this encounter? (DM, HTN, Smoking, COPD, CAD, Cancer, CVA, ARF, Chemo, Hep., AIDS, mental health diagnosis, sleep apnea, morbid obesity)? @ -None Was patient admitted / discharged? Hospital course, mention meds given and ro britt, prescriptions, significant lab abnormalities, going to OR and other pertinent info. @ -Patient reevaluated and feeling much better and requesting discharge home. Heart rate improved to 114 prior to Cardizem. Patient does request her Xanax. Patient and family are updated on results and need for follow-up. Undiagnosed new problem with uncertain prognosis? @ -No Drug Therapy requiring intensive monitoring for toxicity (Heparin, Nitro, Insulin, Cardizem)? @ -No Were any procedures done? @ -No Diagnosis/symptom? @ -Ureterolithiasis Acute, or Chronic, or Acute on Chronic? @ -Acute Uncomplicated (without systemic symptoms) or Complicated (systemic symptoms)? @ -default Side effects of treatment? @ -No Exacerbation, Progression, or Severe Exacerbation? @ -No Poses a threat to life or bodily function? How? (Chest pain, [place], [place], pneumonia, PE, COPD, DKA, ARF, appy, cholecystitis, CVA, Diverticulitis, Homicidal, Suicidal, threat to staff... and all critical care pts) @ -No - Lab Data Result diagrams: 01/28/23 14:59 01/28/23 14:59 Lab Results 01/28/23 01/28/23 01/28/23 Range/Units 14:59 14:59 14:59 WBC 12.4 H (3.8-10.6) k/uL RBC 4.32 (3.80-5.40) m/uL Hgb 13.1 (11.4-16.0) gm/dL Hct 39.0 (34.0-46.0) % MCV 90.3 (80.0-100.0) fL MCH 30.4 (25.0-35.0) pg MCHC 33.6 (31.0-37.0) g/dL RDW 13.2 (11.5-15.5) % Plt Count 256 (150-450) k/uL MPV 9.5 Neutrophils % 88 % Lymphocytes % 6 % Monocytes % 4 % Eosinophils % 1 % Basophils % 0 % Neutrophils # 11.0 H (1.3-7.7) k/uL Lymphocytes # 0.7 L (1.0-4.8) k/uL Monocytes # 0.4 (0-1.0) k/uL Eosinophils # 0.2 (0-0.7) k/uL Basophils # 0.1 (0-0.2) k/uL PT 9.8 (9.0-12.0) sec INR 0.9 (<1.2) APTT 23.0 (22.0-30.0) sec Sodium 140 (137-145) mmol/L Potassium 4.1 (3.5-5.1) mmol/L Chloride 105 (98-107) mmol/L Carbon Dioxide 26 (22-30) mmol/L Anion Gap 9 mmol/L BUN 20 H (7-17) mg/dL Creatinine 0.81 (0.52-1.04) mg/dL Est GFR (CKD-EPI)AfAm 80 (>60 ml/min/1.73 sqM) Est GFR (CKD-EPI)NonAf 69 (>60 ml/min/1.73 sqM) Glucose 126 H (74-99) mg/dL Calcium 9.1 (8.4-10.2) mg/dL Total Bilirubin 0.7 (0.2-1.3) mg/dL AST 20 (14-36) U/L ALT 17 (4-34) U/L Alkaline Phosphatase 76 (38-126) U/L Troponin I (0.000-0.034) ng/mL Total Protein 6.8 (6.3-8.2) g/dL Albumin 3.9 (3.5-5.0) g/dL Amylase 86 (30-110) U/L Lipase 158 (23-300) U/L 01/28/23 Range/Units 16:18 WBC (3.8-10.6) k/uL RBC (3.80-5.40) m/uL Hgb (11.4-16.0) gm/dL Hct (34.0-46.0) % MCV (80.0-100.0) fL MCH (25.0-35.0) pg MCHC (31.0-37.0) g/dL RDW (11.5-15.5) % Plt Count (150-450) k/uL MPV Neutrophils % % Lymphocytes % % Monocytes % % Eosinophils % % Basophils % % Neutrophils # (1.3-7.7) k/uL Lymphocytes # (1.0-4.8) k/uL Monocytes # (0-1.0) k/uL Eosinophils # (0-0.7) k/uL Basophils # (0-0.2) k/uL PT (9.0-12.0) sec INR (<1.2) APTT (22.0-30.0) sec Sodium (137-145) mmol/L Potassium (3.5-5.1) mmol/L Chloride (98-107) mmol/L Carbon Dioxide (22-30) mmol/L Anion Gap mmol/L BUN (7-17) mg/dL Creatinine (0.52-1.04) mg/dL Est GFR (CKD-EPI)AfAm (>60 ml/min/1.73 sqM) Est GFR (CKD-EPI)NonAf (>60 ml/min/1.73 sqM) Glucose (74-99) mg/dL Calcium (8.4-10.2) mg/dL Total Bilirubin (0.2-1.3) mg/dL AST (14-36) U/L ALT (4-34) U/L Alkaline Phosphatase (38-126) U/L Troponin I <0.012 (0.000-0.034) ng/mL Total Protein (6.3-8.2) g/dL Albumin (3.5-5.0) g/dL Amylase (30-110) U/L Lipase (23-300) U/L Disposition Clinical Impression: Ureterolithiasis Disposition: HOME SELF-CARE Condition: Stable Instructions (If sedation given, give patient instructions): Ureteral Stones (ED) Additional Instructions: Prescriptions at the pharmacy. Please do follow-up with primary care physician in the next day or 2 for recheck. Also follow-up with urology, number provided. Return for fever, increased pain, vomiting, worsening or changing symptoms or other concerns. Prescriptions: Tamsulosin [Flomax] 0.4 mg PO DAILY #14 cap Metoclopramide HCl [Reglan] 10 mg PO Q6HR PRN #15 tablet PRN Reason: Nausea Ketorolac [Toradol] 10 mg PO Q6HR PRN #15 tab PRN Reason: Pain Is patient prescribed a controlled substance at d/c from ED?: No Referrals: Robb Grier MD [STAFF PHYSICIAN] - 1-2 days Tarik Chung MD [STAFF PHYSICIAN] - 1-2 days Time of Disposition: 17:53
[2023-01-28 15:18] LABS: Basophils # (A) 0.1 k/uL (0-0.2); Basophils % (A) 0 %; Eosinophils # (A) 0.2 k/uL (0-0.7); Eosinophils % (A) 1 %; HGB 13.1 gm/dL (11.4-16.0); Lymphocytes # (A) 0.7 k/uL (1.0-4.8); Lymphocytes % (A) 6 %; MCH 30.4 pg (25.0-35.0); MCHC 33.6 g/dL (31.0-37.0); MCV 90.3 fL (80.0-100.0); Mean Platelet Volume 9.5; Monocytes # (A) 0.4 k/uL (0-1.0); Monocytes % (A) 4 %; Neutrophils % (A) 88 %; Platelet Count 256 k/uL (150-450); RBC 4.32 m/uL (3.80-5.40); RDW 13.2 % (11.5-15.5); WBC 12.4 k/uL (3.8-10.6)
[2023-01-28 15:30] LABS: INR 0.9 (<1.2); Prothrombin Time 9.8 sec (9.0-12.0)
[2023-01-28 15:41] LABS: Albumin 3.9 g/dL (3.5-5.0); Calcium 9.1 mg/dL (8.4-10.2); Potassium 4.1 mmol/L (3.5-5.1); Total Bilirubin 0.7 mg/dL (0.2-1.3); Total Protein 6.8 g/dL (6.3-8.2)
[2023-01-28] MEDS ORDERED: DILTIAZEM 5 MG/ML 5 ML VIAL IVP STA (16:18)
--- NOTE | 2023-01-28 16:44 | US ---
EXAMINATION TYPE: US gallbladder DATE OF EXAM: 01/28/2023 COMPARISON: PET CT 2019 CLINICAL HISTORY: pain. Pain. TECHNIQUE: Multiple sonographic images of the right upper quadrant are obtained. FINDINGS: EXAM MEASUREMENTS: Liver Length: 16.9 cm Gallbladder Wall: 0.25 cm CBD: 0.54 cm Right Kidney: 12.0 x 5.6 x 5.4 cm MINE TECHNICIAN NOTES: Limited due to gas and patient body habitus. Pancreas: Not well seen. Liver: Appears coarse in echotexture. Limited. Gallbladder: Folds seen. Evidence for sonographic Coker's sign: No CBD: Measures upper limits. Right Kidney: Measures upper limits. *Hydronephrosis seen*. Hyperechoic focus with shadowing seen mid medially in renal pelvis: 1.2 x 0.8 x 0.6 cm. IMPRESSION: There is a large obstructing calculus in the renal pelvis that could be at the ureteropelvic junction of the right kidney. There is some hydronephrosis. No gallstones or dilated ducts.
[2023-01-28] MEDS ORDERED: ALPRAZolam 0.5 MG TAB PO STA (17:46)
--- NOTE | 2023-01-28 17:55 | XR ---
EXAMINATION TYPE: XR KUB DATE OF EXAM: 01/28/2023 COMPARISON: 12/28/2018 HISTORY: Nausea and vomiting TECHNIQUE: 2 view FINDINGS: 2 view supine were obtained. No sign of intestinal obstruction or pneumoperitoneum. Fecal p attern is normal. No evidence of a mass. There are chest leads. No pathologic calcification. Exam cummings ited by patient size. IMPRESSION: Nonacute abdomen. No adverse change.
[2023-01-28 17:56] VITALS: RESP 18
[2023-01-28 17:57] VITALS: BP 147/130
[2023-01-28 18:10] VITALS: PULSE 107
== END 2023-01-28 18:21 | disposition home or self-care (01) ==
LOC: EC 14:02
DX: N13.2 Hydronephrosis with renal and ureteral calculous obstruction (principal); I48.91 Unspecified atrial fibrillation; I25.10 Atherosclerotic heart disease of native coronary artery without angina pectoris; I25.2 Old myocardial infarction; I10 Essential (primary) hypertension; E07.9 Disorder of thyroid, unspecified; M19.90 Unspecified osteoarthritis, unspecified site; E78.5 Hyperlipidemia, unspecified; F41.9 Anxiety disorder, unspecified; Z79.1 Long term (current) use of non-steroidal anti-inflammatories (NSAID); Z79.890 Hormone replacement therapy; Z79.899 Other long term (current) drug therapy; Z88.6 Allergy status to analgesic agent; Z88.0 Allergy status to penicillin; Z88.2 Allergy status to sulfonamides; Z88.1 Allergy status to other antibiotic agents
CPT/HCPCS: 36415; 80053; 82150; 83690; 84484; 85025; 85610; 85730; 74018; 76705; 99284; 96374; 96375 ×3; 96361 ×3; J2765; J1885

== ENCOUNTER 2023-02-25 14:19 | Emergency (ER) | payer MEDICARE, BC ==
[2023-02-25 14:30] VITALS: TEMP 99.7
--- NOTE | 2023-02-25 15:18 | ED ---
Arrhythmia/Palpitations HPI - General Chief Complaint: Arrhythmia/Palpitations Stated Complaint: vomiting Source: patient, RN notes reviewed, old records reviewed Mode of arrival: ambulatory Limitations: no limitations - History of Present Illness Initial Comments: This is a 82-year-old female to the emergency department for evaluation patient comes in for not feeling well short of breath weakness numbness and tingling in the arms. No chest pain. Patient has history of atrial fibrillation patient has been taking all medications at home as prescribed. No other complaints or this patient. No chest pain no headaches or shortness of breath. MD Complaint: rapid heart beat, "heart racing", palpitations, irregular heart beat, atrial fibrillation -: hour(s) Arrhythmia History: atrial fibrillation Associated Symptoms: shortness of breath Treatments Prior to Arrival: other (0) - Related Data Home Medications Medication Instructions Recorded Confirmed Atorvastatin Calcium 40 mg PO HS 09/05/16 02/25/23 Isosorbide Mononitrate [Isosorbide 30 mg PO DAILY 09/05/16 02/25/23 Mononitrate ER] Levothyroxine Sodium [Synthroid] 50 mcg PO DAILY 09/05/16 02/25/23 lisinopriL [Lisinopril] 20 mg PO DAILY 09/05/16 02/25/23 ALPRAZolam [Xanax] 0.5 mg PO BID PRN 12/28/18 02/25/23 amLODIPine [Norvasc] 10 mg PO DAILY 12/28/18 02/25/23 Metoprolol Tartrate [Lopressor] 25 mg PO BID 04/20/19 02/25/23 Multivitamins, Thera [Multivitamin 1 tab PO DAILY 01/28/23 02/25/23 (formulary)] Pantoprazole [Protonix] 40 mg PO DAILY 02/25/23 02/25/23 Previous Rx's Medication Instructions Recorded Clopidogrel Bisulfate [Plavix] 75 mg PO DAILY #90 tab 01/18/22 Allergies Allergy/AdvReac Type Severity Reaction Status Date / Time erythromycin base Allergy Rash/Hives Verified 02/25/23 17:20 Penicillins Allergy Unknown Verified 02/25/23 17:20 Childhood sulfamethoxazole Allergy Rash/Hives Verified 02/25/23 17:20 [From ] trimethoprim [From ] Allergy Rash/Hives Verified 04/24/23 17:20 Review of Systems ROS Statement: Those systems with pertinent positive or pertinent negative responses have been documented in the HPI. ROS Other: All systems not noted in ROS Statement are negative. Past Medical History Past Medical History: Atrial Fibrillation, Coronary Artery Disease (CAD), Hyperlipidemia, Hypertension, Myocardial Infarction ([place]), Osteoarthritis ([place]), Thyroid Disorder Additional Past Medical History / Comment(s): hx. colon polyps Last Myocardial Infarction Date:: 1993 History of Any Multi-Drug Resistant Organisms: None Reported Past Surgical History: Adenoidectomy, Heart Catheterization With Stent, Hysterectomy Additional Past Surgical History / Comment(s): right carotid endartectomy, bronchoscopy, colonoscopy Past Anesthesia/Blood Transfusion Reactions: No Reported Reaction Date of Last Stent Placement:: 2005 Past Psychological History: Anxiety Smoking Status: Never smoker Past Alcohol Use History: Occasional Past Drug Use History: None Reported - Past Family History Mother Family Medical History: No Reported History Father Family Medical History: Hypertension, Myocardial Infarction ([place]) General Exam Limitations: no limitations General appearance: alert, in no apparent distress Head exam: Present: atraumatic, normocephalic, normal inspection Eye exam: Present: normal appearance, PERRL, EOMI. Absent: scleral icterus, conjunctival injection, periorbital swelling ENT exam: Present: normal exam, mucous membranes moist Neck exam: Present: normal inspection. Absent: tenderness, meningismus, lymphadenopathy Respiratory exam: Present: normal lung sounds bilaterally. Absent: respiratory distress, wheezes, rales, rhonchi, stridor Cardiovascular Exam: Present: tachycardia, irregular rhythm, normal heart sounds. Absent: systolic murmur, diastolic murmur, rubs, gallop, clicks GI/Abdominal exam: Present: soft, normal bowel sounds. Absent: distended, tenderness, guarding, rebound, rigid Extremities exam: Present: normal inspection, full ROM, normal capillary refill. Absent: tenderness, pedal edema, joint swelling, calf tenderness Back exam: Present: normal inspection Neurological exam: Present: alert, oriented X3, CN II-XII intact Psychiatric exam: Present: normal affect, normal mood Skin exam: Present: warm, dry, intact, normal color. Absent: rash Course Vital Signs 02/25/23 02/25/23 02/25/23 14:25 16:21 18:35 Temperature 99.7 F H Pulse Rate 136 H 115 H 77 Respiratory 22 19 18 Rate Blood Pressure 161/64 104/72 104/72 O2 Sat by Pulse 96 94 L 94 L Oximetry 02/25/23 19:03 Temperature Pulse Rate 92 Respiratory 18 Rate Blood Pressure 102/49 O2 Sat by Pulse 94 L Oximetry - Reevaluation(s) Reevaluation #1: 02/25/23 18:42 Medical record is reviewed Reevaluation #2: 02/25/23 18:42 patient symptoms continue improved here in the ER Reevaluation #3: 02/25/23 18:42 patient informed results and questions answered Reevaluation #4: 02/25/23 18:42 Was pt. sent in by a medical professional or institution? @ -no Did you speak to anyone other than the patient for history? @ -no Did you review nursing and triage notes? @ -agree Were old charts reviewed? @ -no Differential Diagnosis? @ -cp EKG interpreted by me (3pts min.)? @ -yes X-rays interpreted by me (1pt min.)? @ -no CT interpreted by me (1pt min.)? @ -no U/S interpreted by me (1pt. min.)? @ -no What testing was considered but not performed? (CT, X-rays, U/S, labs)? Why? @ -no What meds were considered but not given? Why? @ -no Did you discuss the management of the patient with other professionals? @ -no Did you reconcile home meds? @ -no Was smoking cessation discussed for >3mins.? @ -no Was critical care preformed (if so, how long)? @ -no Were there social determinants of health that impacted care today? How? (Homelessness, low income, unemployed, alcoholism, drug addiction, transportation, low edu. Level, literacy, decrease access to med. care, [facility]p, rehab)? @ -no Was there de-escalation of care discussed even if they declined? (Discuss DNR or withdrawal of care, Hospice)? @ -no What co-morbidities impacted this encounter? (DM, HTN, Smoking, COPD, CAD, Cancer, CVA, Hep., AIDS, mental health diagnosis, sleep apnea, morbid obesity)? @ -no Was patient admitted / discharged? @ -dc Undiagnosed new problem with uncertain prognosis? @ -no Drug Therapy requiring intensive monitoring for toxicity (Heparin, Nitro, Insulin, Cardizem)? @ -no Were any procedures done? @ -no Diagnosis/symptom? @ -atril firbrillation and RVR Acute, or Chronic, or Acute on Chronic? @ -acute on chornic Uncomplicated (without systemic symptoms) or Complicated (systemic symptoms)? @ -no Side effects of treatment? @ -no Exacerbation, Progression, or Severe Exacerbation] @ -no Poses a threat to life or bodily function? @ -no Reevaluation #5: 02/25/23 18:42 Differential Chest Pain: Stable Angina, Unstable Angina, STEMI, NSTEMI Aortic Dissection, Pneumothorax, Musculoskeletal, Esophageal Spasm GERD, Cholecystitis, Pancreatitis, Zoster, this is not meant to be an all-inclusive list. EKG Findings - EKG Comments: EKG Findings:: EKG is A. fib with RVR 150 QRS 135 QTc 401 Medical Decision Making - Medical Decision Making 82 female to the emergency department for evaluation found to be in atrial fibrillation with RVR, improved heart rate here in the ER patient feels improved and would like discharge home - Lab Data Result diagrams: 02/25/23 16:09 02/25/23 16:09 Lab Results 02/25/23 02/25/23 02/25/23 Range/Units 16:09 16:09 16:09 WBC 12.2 H (3.8-10.6) k/uL RBC 4.24 (3.80-5.40) m/uL Hgb 12.7 (11.4-16.0) gm/dL Hct 39.7 (34.0-46.0) % MCV 93.7 (80.0-100.0) fL MCH 30.0 (25.0-35.0) pg MCHC 32.0 (31.0-37.0) g/dL RDW 13.7 (11.5-15.5) % Plt Count 246 (150-450) k/uL MPV 10.7 Neutrophils % 90 % Lymphocytes % 5 % Monocytes % 3 % Eosinophils % 1 % Basophils % 0 % Neutrophils # 11.0 H (1.3-7.7) k/uL Lymphocytes # 0.6 L (1.0-4.8) k/uL Monocytes # 0.4 (0-1.0) k/uL Eosinophils # 0.1 (0-0.7) k/uL Basophils # 0.1 (0-0.2) k/uL PT 10.4 (9.0-12.0) sec INR 1.0 (<1.2) APTT 21.5 L (22.0-30.0) sec Sodium 139 (137-145) mmol/L Potassium 4.5 (3.5-5.1) mmol/L Chloride 103 (98-107) mmol/L Carbon Dioxide 23 (22-30) mmol/L Anion Gap 13 mmol/L BUN 13 (7-17) mg/dL Creatinine 1.11 H (0.52-1.04) mg/dL Est GFR (CKD-EPI)AfAm 54 (>60 ml/min/1.73 sqM) Est GFR (CKD-EPI)NonAf 47 (>60 ml/min/1.73 sqM) Glucose 145 H (74-99) mg/dL Calcium 9.1 (8.4-10.2) mg/dL Magnesium 1.5 L (1.6-2.3) mg/dL Total Bilirubin 0.9 (0.2-1.3) mg/dL AST 25 (14-36) U/L ALT 17 (4-34) U/L Alkaline Phosphatase 81 (38-126) U/L Troponin I (0.000-0.034) ng/mL NT-Pro-B Natriuret Pep pg/mL Total Protein 6.9 (6.3-8.2) g/dL Albumin 3.8 (3.5-5.0) g/dL 02/25/23 02/25/23 Range/Units 16:09 16:09 WBC (3.8-10.6) k/uL RBC (3.80-5.40) m/uL Hgb (11.4-16.0) gm/dL Hct (34.0-46.0) % MCV (80.0-100.0) fL MCH (25.0-35.0) pg MCHC (31.0-37.0) g/dL RDW (11.5-15.5) % Plt Count (150-450) k/uL MPV Neutrophils % % Lymphocytes % % Monocytes % % Eosinophils % % Basophils % % Neutrophils # (1.3-7.7) k/uL Lymphocytes # (1.0-4.8) k/uL Monocytes # (0-1.0) k/uL Eosinophils # (0-0.7) k/uL Basophils # (0-0.2) k/uL PT (9.0-12.0) sec INR (<1.2) APTT (22.0-30.0) sec Sodium (137-145) mmol/L Potassium (3.5-5.1) mmol/L Chloride (98-107) mmol/L Carbon Dioxide (22-30) mmol/L Anion Gap mmol/L BUN (7-17) mg/dL Creatinine (0.52-1.04) mg/dL Est GFR (CKD-EPI)AfAm (>60 ml/min/1.73 sqM) Est GFR (CKD-EPI)NonAf (>60 ml/min/1.73 sqM) Glucose (74-99) mg/dL Calcium (8.4-10.2) mg/dL Magnesium (1.6-2.3) mg/dL Total Bilirubin (0.2-1.3) mg/dL AST (14-36) U/L ALT (4-34) U/L Alkaline Phosphatase (38-126) U/L Troponin I <0.012 (0.000-0.034) ng/mL NT-Pro-B Natriuret Pep 1370 pg/mL Total Protein (6.3-8.2) g/dL Albumin (3.5-5.0) g/dL Disposition Clinical Impression: Atrial fibrillation, Tachycardia, Palpitations, New onset a-fib, Atrial fibrillation with rapid ventricular response Disposition: HOME SELF-CARE Condition: Fair Instructions (If sedation given, give patient instructions): Heart Palpitations (ED) Is patient prescribed a controlled substance at d/c from ED?: No Referrals: Dennis Benitez MD [Primary Care Provider] - 1-2 days Time of Disposition: 19:00
[2023-02-25] MEDS ORDERED: SODIUM CHLORIDE 0.9% 1,000 ML IV STA (15:58)
[2023-02-25 16:19] LABS: Basophils # (A) 0.1 k/uL (0-0.2); Basophils % (A) 0 %; Eosinophils # (A) 0.1 k/uL (0-0.7); Eosinophils % (A) 1 %; HCT 39.7 % (34.0-46.0); HGB 12.7 gm/dL (11.4-16.0); Lymphocytes # (A) 0.6 k/uL (1.0-4.8); Lymphocytes % (A) 5 %; MCV 93.7 fL (80.0-100.0); Mean Platelet Volume 10.7; Monocytes # (A) 0.4 k/uL (0-1.0); Monocytes % (A) 3 %; Neutrophils % (A) 90 %; Platelet Count 246 k/uL (150-450); RBC 4.24 m/uL (3.80-5.40); RDW 13.7 % (11.5-15.5); WBC 12.2 k/uL (3.8-10.6)
[2023-02-25 16:30] LABS: Albumin 3.8 g/dL (3.5-5.0); Calcium 9.1 mg/dL (8.4-10.2); Magnesium 1.5 mg/dL (1.6-2.3); Potassium 4.5 mmol/L (3.5-5.1); Total Bilirubin 0.9 mg/dL (0.2-1.3); Total Protein 6.9 g/dL (6.3-8.2)
[2023-02-25 16:35] LABS: Partial Thromboplastin Time 21.5 sec (22.0-30.0); Prothrombin Time 10.4 sec (9.0-12.0)
[2023-02-25] MEDS ORDERED: MAGNESIUM OXIDE 400 MG TAB PO STA (17:22)
[2023-02-25] MEDS ORDERED: DILTIAZEM DRIP BOLUS FROM BAG 1 MG SOLN IV ONE (17:23)
[2023-02-25] MEDS: MAGNESIUM SULFATE-D5W PMX 1 GM in DEXTROSE/WATER 1 100ML.BAG IVPB SCH ×2 (18:16→19:20)
[2023-02-25] MEDS ORDERED: DILTIAZEM 125 MG/25 ML VIAL IV ONE (18:30)
[2023-02-25 18:36] VITALS: RESP 18
[2023-02-25 19:04] VITALS: BP 102/49; PULSE 92
[2023-02-25] MEDS ORDERED: METOPROLOL TARTRATE 5 MG/5 ML VIAL IVP STA (19:25)
[2023-02-25] MEDS ORDERED: MAGNESIUM OXIDE 400 MG TAB PO SCH (21:00)
== END 2023-02-25 20:57 | disposition home or self-care (01) ==
LOC: EC 14:19
DX: I48.91 Unspecified atrial fibrillation (principal); R00.0 Tachycardia, unspecified; I25.10 Atherosclerotic heart disease of native coronary artery without angina pectoris; E78.5 Hyperlipidemia, unspecified; I10 Essential (primary) hypertension; I25.2 Old myocardial infarction; M19.90 Unspecified osteoarthritis, unspecified site; E07.9 Disorder of thyroid, unspecified; F41.9 Anxiety disorder, unspecified; Z88.0 Allergy status to penicillin; Z88.1 Allergy status to other antibiotic agents; Z88.2 Allergy status to sulfonamides; Z79.890 Hormone replacement therapy; Z79.899 Other long term (current) drug therapy
CPT/HCPCS: 93005; 83880; 80053; 83735; 84484; 85025; 85610; 85730; 99285; 96365; 96366; 96375 ×2; 96361; J3475; 36415

== ENCOUNTER → 2023-03-06 | Outpatient (CLI) | payer MEDICARE, BC ==
--- NOTE | 2023-03-06 14:28 | US ---
EXAMINATION TYPE: US abdomen complete DATE OF EXAM: 03/06/2023 COMPARISON: US GB 01/28/23 CLINICAL INDICATION: Female, 82 years old with history of R10.84 ABD PAIN; Abdominal pain, great amou nt of nausea. TECHNIQUE: Multiple sonographic images of the abdomen are obtained. FINDINGS: EXAM MEASUREMENTS: Liver Length: 18.6 cm Gallbladder Wall: 0.21 cm CBD: 0.73 cm Spleen: 10.8 cm Right Kidney: 12.1 x 6.0 x 5.5 cm Left Kidney: 11.0 x 4.8 x 5.6 cm MFT NOTES: Limited due to overlying gas. Pancreas: Not seen in detail Liver: Mildly enlarged. Overall homogeneous appearance without focal lesion. Gallbladder: Junctional fold. No abnormal distention, wall thickening, pericholecystic fluid, or shad owing calculi. Evidence for sonographic Coker's sign: No CBD: Mildly dilated. Spleen: Appears wnl Right Kidney: Mild hydronephrosis. Possible 1.8 x 0.8 x 1.5 cm echogenic stone at the renal pelvis. Left Kidney: No hydronephrosis or masses seen Upper IVC: Appears wnl Abd Aorta: Proximal segment is obscured. Plaque seen throughout visualized portions of aorta and i liac arteries. IMPRESSION: 1. Mild right-sided hydronephrosis. Possible 1.8 cm stone at the right renal pelvis/upper right urete r. 2. Mildly dilated bile duct at 7.3 mm. This may be acceptable for patient's age. 3. Mild hepatomegaly at 18.6 cm. 4. Extensive atherosclerotic change throughout the abdominal aorta.
== END | disposition home or self-care (01) ==
LOC: RADUSWWP 07:53
PROVIDERS: ATTEND Internal Medicine
DX: R16.0 Hepatomegaly, not elsewhere classified (principal); N13.30 Unspecified hydronephrosis; K83.8 Other specified diseases of biliary tract; I70.0 Atherosclerosis of aorta; R10.84 Generalized abdominal pain
CPT/HCPCS: 76700

== ENCOUNTER → 2023-03-20 | Outpatient (CLI) | payer MEDICARE, BC ==
--- NOTE | 2023-03-20 19:44 | CT ---
EXAMINATION TYPE: CT abdomen pelvis wo con DATE OF EXAM: 03/20/2023 HISTORY: Right kidney stone, surgical planning CT DLP: 650.9 mGycm. Automated Exposure Control for Dose Reduction was Utilized. TECHNIQUE: CT scan of the abdomen and pelvis is performed without oral or IV contrast. COMPARISON: NONE FINDINGS: Within the limitations of a non-contrast study, the following observations are made. LUNG BASES: Calcification at level of the mitral valve. There is calcification and/or stent in the ri ght coronary artery distribution. Mild bibasilar linear scarring and/or atelectasis. LIVER/GB: Prominent right hepatic lobe. PANCREAS: No significant abnormality is seen. SPLEEN: No significant abnormality is seen. ADRENALS: No significant abnormality is seen. KIDNEYS: No left-sided renal calculi or hydronephrosis. There is a 15 mm calculus in the proximal to mid right ureter sagittal image 53 causing moderate to severe right-sided hydronephrosis. Urinary connor dder poorly distended without intraluminal calculus. Moderate left-sided eccentric wall thickening me asuring up to 1.5 cm axial image 131 is noted. BOWEL: Diverticula in the left and sigmoid colon. No CT evidence for acute diverticulitis. No suspici ous small or large bowel dilatation. GENITAL ORGANS: Uterus is surgically absent or there is inferior prolapse. Correlate clinically. LYMPH NODES: No greater than 1cm abdominal or pelvic lymph nodes are appreciated. OSSEOUS STRUCTURES: Vacuum disc phenomenon with moderate disc space narrowing at L4-L5 level. Additio nal multilevel moderate to severe spurring throughout the thoracolumbar spine. Moderate axial joint s pace loss in both hips. OTHER: Severe calcified plaque of the aorta extends into branch vessels. IMPRESSION: There is a 15 mm calculus in the proximal to mid right ureter causing moderate to severe right-sided hydronephrosis. Mild to moderate left-sided eccentric bladder wall thickening warrants fo llow-up, correlate clinically.
== END | disposition home or self-care (01) ==
LOC: RADCTMAIN 18:20
PROVIDERS: ATTEND Urology
DX: N13.2 Hydronephrosis with renal and ureteral calculous obstruction (principal); N32.89 Other specified disorders of bladder
CPT/HCPCS: 74176

== ENCOUNTER → 2023-03-26 | Outpatient (CLI) | payer MEDICARE, BC ==
[2023-03-26 19:28] LABS: Appearance,Urine Turbid (Clear); Bilirubin,Urine Negative (Negative); Blood,Urine Moderate (Negative); Color,Urine Yellow (Yellow); Ketones,Urine Negative (Negative); Nitrite,Urine Negative (Negative); PH, Urine 5.5 (5.0-8.0); Specific Gravity,Urine 1.011 (1.001-1.030); Urobilinogen,Urine 0.2 (0.2,1.0)
[2023-03-26 19:38] LABS: Bacteria,Urine 2+ /HPF (None Seen)
[2023-03-26 20:22] LABS: HCT 35.8 % (37.2-46.3); HGB 11.3 g/dL (12.0-15.0); MCH 29.4 pg (27.0-32.0); MCHC 31.6 g/dL (32.0-37.0); MCV 93.2 fL (80.0-97.0); Mean Platelet Volume 11.9 fL (9.5-12.2); NRBC Per 100 WBC 0 /100 WBCS (0.0-0.0); Platelet Count 334 X 10*3/uL (140-440); RBC 3.84 X 10*6/uL (4.10-5.20); WBC 9.95 X 10*3/uL (4.50-10.00)
[2023-03-26 20:46] LABS: African American GFR (CKD) 60.9 (60.0-200.0); Anion Gap 10.8 mmol/L (10.00-18.00); BUN/Creat Ratio 12.28 Ratio (12.00-20.00); Blood Urea Nitrogen 12.4 mg/dL (9.0-27.0); Calcium 9.4 mg/dL (8.7-10.3); Carbon Dioxide 25.5 mmol/L (20.0-27.5); Non-African American GFR(CKD) 52.5 (60.0-200.0); Potassium 4.9 mmol/L (3.5-5.5)
== END | disposition home or self-care (01) ==
LOC: LABPAT 13:07
PROVIDERS: ATTEND Urology
DX: Z01.812 Encounter for preprocedural laboratory examination (principal); N20.1 Calculus of ureter; R31.29 Other microscopic hematuria
CPT/HCPCS: 80048; 81001; 85027; 87086

== ENCOUNTER 2023-04-03 08:59 | Day surgery (SDC) | payer MEDICARE, BC ==
--- NOTE | 2023-04-02 11:36 | P.GSHP ---
History of Present Illness H&P Date: 04/02/23 82-year-old female with right flank pain for over a month. She was evaluated with an ultrasound identifying a renal stone at 1.8 mm. I did a computed tomography scan to closer assess the issue and she has a 1.5 cm stone in the right proximal to mid ureter. She comes for right ureteroscopy and laser lithotripsy. Alternatives have been discussed. Past Medical History Past Medical History: Atrial Fibrillation, Coronary Artery Disease (CAD), Hyperlipidemia, Hypertension, Myocardial Infarction ([place]), Osteoarthritis (OA), Thyroid Disorder Additional Past Medical History / Comment(s): sarcoidosis, present kidney stones, rectal prolapse. [place] rt ear Last Myocardial Infarction Date:: 2005 History of Any Multi-Drug Resistant Organisms: None Reported Past Surgical History: Adenoidectomy, Heart Catheterization With Stent, Hysterectomy Additional Past Surgical History / Comment(s): right and left carotid endartectomy, bronchoscopy, colonoscopy Past Anesthesia/Blood Transfusion Reactions: No Reported Reaction Date of Last Stent Placement:: 2005 Smoking Status: Never smoker - Past Family History Mother Family Medical History: No Reported History Father Family Medical History: Hypertension, Myocardial Infarction ([place]) Medications and Allergies Home Medications Medication Instructions Recorded Confirmed Type Atorvastatin Calcium 40 mg PO HS 09/05/16 03/29/23 History Isosorbide Mononitrate [Isosorbide 30 mg PO DAILY 09/05/16 03/29/23 History Mononitrate ER] Levothyroxine Sodium [Synthroid] 50 mcg PO DAILY 09/05/16 03/29/23 History lisinopriL [Lisinopril] 20 mg PO DAILY 09/05/16 03/29/23 History ALPRAZolam [Xanax] 0.5 mg PO BID PRN 12/28/18 03/29/23 History amLODIPine [Norvasc] 10 mg PO DAILY 12/28/18 03/29/23 History Metoprolol Tartrate [Lopressor] 25 mg PO BID 04/20/19 03/29/23 History Clopidogrel Bisulfate [Plavix] 75 mg PO DAILY #90 tab 01/18/22 03/29/23 Rx Multivitamins, Thera [Multivitamin 1 tab PO DAILY 01/28/23 03/29/23 History (formulary)] Pantoprazole [Protonix] 40 mg PO DAILY 02/25/23 03/29/23 History Aspirin 81 mg PO DAILY 03/29/23 03/29/23 History Nitrofurantoin Monohyd/M-Cryst 100 mg PO Q12HR 03/29/23 03/29/23 History [Macrobid] Allergies Allergy/AdvReac Type Severity Reaction Status Date / Time erythromycin base Allergy Rash/Hives Verified 03/29/23 15:22 Penicillins Allergy Unknown Verified 03/29/23 15:22 Childhood sulfamethoxazole Allergy Rash/Hives Verified 03/29/23 15:22 [From ] trimethoprim [From ] Allergy Rash/Hives Verified 03/29/23 15:22 Surgical - Exam - General well developed, well nourished, no distress - Eyes normal ocular movement, no icteric - ENT no hearing loss, no congestion - Neck no masses, trachea midline - Respiratory normal respiratory effort, clear to auscultation - Abdomen Abdomen: soft, non tender, no guarding, no rigid, no rebound - Integumentary no rash, no abnormal pigmentation - Neurologic no disoriented, no combative - Psychiatric oriented to time, oriented to person, oriented to place, speech is normal, memory intact Results - Imaging CT scan - abdomen: report reviewed, image reviewed CT scan - pelvis: report reviewed, image reviewed Assessment and Plan Assessment: Impression: Obstructing proximal to mid right ureteral stone (to 1.5 cm), coronary disease, hypertension Recommendations: The patient will undergo right ureteroscopy with laser lithotripsy, possible stent placement
[~2023-04-03 08:59] MED LIST changes: -ALPRAZolam 0.25 MG TAB PO PRN; -ALPRAZolam 0.5 MG TAB PO PRN; -ASPIRIN 325 MG TAB PO PRN; -ASPIRIN 81 MG PO PRN; -CLINDAMYCIN 600 MG in SODIUM CHLORIDE 0.9% 250 ML IRRIGATION PRN; -CLINDAMYCIN 900 MG in DEXTROSE 5% IN WATER 50 ML IVPB PRN; -CLOPIDOGREL 75 MG TAB PO PRN; +HYDROmorphone 0.5 MG/0.5 ML SYRINGE IVP PRN; +LACTATED RINGERS 1,000 ML IV SCH; +LIDOCAINE 1% (10MG/ML) FOR IV START INTRADERMA PRN; -NITROGLYCERIN SL TABS 0.4 MG TAB SUBLINGUAL PRN; +ONDANSETRON 4 MG/2 ML VIAL IVP ONE; -SODIUM CHLORIDE 0.9% 1,000 ML in EMPTY BAG 1 BAG IV ONE
--- NOTE | 2023-04-03 09:23 | XR ---
EXAMINATION TYPE: XR KUB DATE OF EXAM: 04/03/2023 Comparison: 01/28/2023 Clinical History: 82-year-old female N20.1 right ureteral stone Findings: Lung bases are clear. Supine imaging limited for assessment of free air. Nonobstructive bowel gas pat tern. Endplate spondylosis throughout the lumbar spine. Dense splenic artery calcifications incidenta lly noted. Moderate stool in the pelvis. No definite suspicious calcification is seen. Impression: No definite suspicious calcification appreciated radiographically.
[2023-04-03 09:49] VITALS: TEMP 96.7
[2023-04-03] MEDS ORDERED: DEXAMETHASONE SOD PHOSPHATE 4 MG/ML 1 ML VIAL IVP ONE (10:03)
[2023-04-03] MEDS ORDERED: MIDAZOLAM 2 MG/2 ML VIAL IVP ONE (10:25)
[2023-04-03] MEDS ORDERED: GLYCOPYRROLATE 0.2 MG/ML 2 ML VIAL ONE (10:45)
[2023-04-03] MEDS ORDERED: ROCURONIUM 10 MG/ML (5 ML VIAL) IV ONE (10:45)
[2023-04-03] MEDS ORDERED: NEOSTIGMINE 1 MG/ML 10 ML VIAL ONE (10:45)
[2023-04-03] MEDS ORDERED: fentaNYL (PF) 50 MCG/ML 2 ML AMP ONE (10:45)
[2023-04-03] MEDS ORDERED: PHENYLEPHRINE-0.9% NACL SYG 1,000 MCG/10 ML SYRINGE ONE (10:45)
[2023-04-03] MEDS ORDERED: LIDOCAINE 2% INJ 20 MG/ML (2 ML VIAL) ONE (10:45)
[2023-04-03] MEDS ORDERED: PROPOFOL 10 MG/ML 20 ML VIAL IV ONE (10:45)
[2023-04-03] MEDS ORDERED: ePHEDrine 50 MG/ML 1 ML VIAL ONE (10:45)
[2023-04-03] MEDS ORDERED: SUCCINYLCHOLINE CHLORIDE 200 MG/10 ML VIAL IV ONE (10:45)
[2023-04-03] MEDS ORDERED: LACTATED RINGERS 1,000 ML IV ONE (12:00)
--- NOTE | 2023-04-03 12:05 | P.OP ---
Date of Procedure: 04/03/23 Preoperative Diagnosis: Right ureteral stone with obstruction Postoperative Diagnosis: Same, complete vaginal prolapse Procedure(s) Performed: Reduction of vaginal prolapse, cystoscopy, right ureteroscopy with laser lithotripsy, 6 x 24 stent Anesthesia: CLARISSA Surgeon: Robb Grier Estimated Blood Loss (ml): 0 Pathology: other (Stone) Condition: stable Disposition: PACU Indications for Procedure: Patient is 82. She has a 1.5 cm mid right ureteral stone causing obstruction. She comes for right ureteroscopy and laser lithotripsy. Description of Procedure: Patient brought to the operating suite. She is given a general anesthesia. She's placed lithotomy position with a sterile prep and drape. There is complete vaginal prolapse thus I placed 3 Ray-Romy in the vagina to reduce the vaginal prolapse. I introduced the 21-Korean cystoscope into the bladder. The bladder is chronic cystitis. The right ureteral orifice is identified. An 035 wire is passed up by the stone into theright kidney. I passed the semirigid scope up the right ureter to the stone. I broke the stone into multiple small pieces and irrigated out of the bladder however there is a large fragment that floats back into the right renal pelvis. I thus passed an 035 wire through the ureteroscope up into the kidney. I removed the ureteroscope and over the wire is passed [id number] reentry sheath. The inner sheath is removed. I then pass a flexible ureteroscope up into the renal pelvis and identify the larger fragment that had floated proximally. I break it up into tiny fragments basketing the larger fragments. At the end of the procedure there is no significant remaining stone. I introduced the wire into the collecting system. I removed the working sheath. Over the wires passed a 6 x 24 double-J catheter that coils in the right renal pelvis and in the bladder the bladder is drained. The Ray-Romy sponges are removed from the vagina she is awake and returned recovery room good condition Impression successful removal right ureteral calculus. I discussed with the daughter and the need for the patient does see gynecology to address the vaginal prolapse either pessary or surgical procedure.
[2023-04-03 13:57] VITALS: RESP 16
[2023-04-03 14:20] VITALS: BP 140/76; PULSE 74
--- NOTE | 2023-04-03 18:13 | FL ---
EXAMINATION TYPE: FL guidance operating room DATE OF EXAM: 04/03/2023 FLUOROSCOPY Fluoroscopy time of 31 seconds was used during urologic intervention for right-sided kidney stone. 3 image/s document/s the procedure.DOSE AREA PRODUCT (DAP) UGY*M,MGY*CM: 3.62
== END 2023-04-03 14:49 | disposition home or self-care (01) ==
LOC: OR 08:59
PROVIDERS: ATTEND Urology
DX: N20.1 Calculus of ureter (principal); N81.10 Cystocele, unspecified; N30.20 Other chronic cystitis without hematuria; I48.91 Unspecified atrial fibrillation; I25.10 Atherosclerotic heart disease of native coronary artery without angina pectoris; E78.5 Hyperlipidemia, unspecified; I10 Essential (primary) hypertension; I25.2 Old myocardial infarction; M19.90 Unspecified osteoarthritis, unspecified site; E07.9 Disorder of thyroid, unspecified; D86.9 Sarcoidosis, unspecified; Z95.5 Presence of coronary angioplasty implant and graft; Z90.89 Acquired absence of other organs; Z90.710 Acquired absence of both cervix and uterus; Z82.49 Family history of ischemic heart disease and other diseases of the circulatory system; Z79.82 Long term (current) use of aspirin; Z98.890 Other specified postprocedural states; Z79.899 Other long term (current) drug therapy; Z88.1 Allergy status to other antibiotic agents; Z88.0 Allergy status to penicillin; Z88.2 Allergy status to sulfonamides
CPT/HCPCS: 57285; 52320; 82365; 74018; C2625; C1769; J2250; J0330; J1100; J2710; J0690; J2405; J3010; J2370; J2704; J2001

== ENCOUNTER → 2023-04-10 | Outpatient (CLI) | payer MEDICARE, BC ==
--- NOTE | 2023-04-11 07:31 | XR ---
EXAMINATION TYPE: XR KUB DATE OF EXAM: 04/10/2023 Comparison: 04/03/2023 Clinical History: 82-year-old female N20.0 CALCULUS OF KIDNEY Findings: Right-sided ureteral stent. The distal end has partially uncoiled. It still extends into the lower pe lvis. Moderate stool burden, particularly in the pelvis. Nonobstructive bowel gas pattern. No definit e suspicious calcification seen. Degenerative changes throughout the visualized spine and pubic symph ysis. Impression: 1. Interval placement of right ureteral stent. The distal end has partially uncoiled but is still loc ated in the lower pelvis. Unable to clearly identify a suspicious calcification radiographically. 2. Moderate stool particularly in the pelvis.
== END | disposition home or self-care (01) ==
LOC: RADXRMAIN 16:27
PROVIDERS: ATTEND Urology
DX: N20.0 Calculus of kidney (principal); Z96.0 Presence of urogenital implants
CPT/HCPCS: 74018

== ENCOUNTER 2023-04-17 06:34 | Day surgery (SDC) | payer MEDICARE, BC ==
[2023-04-12 18:07] VITALS: BMI 31.8
--- NOTE | 2023-04-16 18:04 | P.GSHP ---
History of Present Illness H&P Date: 04/16/23 82 yo female with a history of a large right ureteral stone that caused significant obstruction. SHe recently underwent a right ureteroscopy with laser lithotripsy and stent placement. The patient has complete vaginal prolapse. Because of the vaginal prolapse the bladder descended and therefore the stnet retracted. She underwent cysto for stent removal and found the stent had retracted into the distal ureter that was confirmed on Kub. she comes for right ureteroscopy with stent removal Past Medical History Past Medical History: Atrial Fibrillation, Coronary Artery Disease (CAD), Hyperlipidemia, Hypertension, Myocardial Infarction ([place]), Osteoarthritis (OA), Thyroid Disorder Additional Past Medical History / Comment(s): hx. colon polyps. kidney stones Last Myocardial Infarction Date:: 1993 History of Any Multi-Drug Resistant Organisms: None Reported Past Surgical History: Adenoidectomy, Heart Catheterization With Stent, Hysterectomy Additional Past Surgical History / Comment(s): right carotid endartectomy, bronchoscopy, colonoscopy Past Anesthesia/Blood Transfusion Reactions: No Reported Reaction Date of Last Stent Placement:: 2005 Past Psychological History: Anxiety Smoking Status: Never smoker Past Alcohol Use History: Occasional Past Drug Use History: None Reported - Past Family History Mother Family Medical History: No Reported History Father Family Medical History: Hypertension, Myocardial Infarction ([place]) Medications and Allergies Home Medications Medication Instructions Recorded Confirmed Type Atorvastatin Calcium 40 mg PO HS 09/05/16 04/12/23 History Isosorbide Mononitrate [Isosorbide 30 mg PO DAILY 09/05/16 04/12/23 History Mononitrate ER] Levothyroxine Sodium [Synthroid] 50 mcg PO DAILY 09/05/16 04/12/23 History lisinopriL [Lisinopril] 20 mg PO DAILY 09/05/16 04/12/23 History ALPRAZolam [Xanax] 0.5 mg PO BID PRN 12/28/18 04/12/23 History amLODIPine [Norvasc] 10 mg PO DAILY 12/28/18 04/12/23 History Metoprolol Tartrate [Lopressor] 25 mg PO BID 04/20/19 04/12/23 History Clopidogrel Bisulfate [Plavix] 75 mg PO DAILY #90 tab 01/18/22 04/12/23 Rx Pantoprazole [Protonix] 40 mg PO DAILY 02/25/23 04/12/23 History Ciprofloxacin HCl [Cipro] 250 mg PO Q12HR 04/12/23 04/12/23 History Allergies Allergy/AdvReac Type Severity Reaction Status Date / Time erythromycin base Allergy Rash/Hives Verified 04/12/23 17:55 Penicillins Allergy Unknown Verified 04/12/23 17:55 Childhood sulfamethoxazole Allergy Rash/Hives Verified 04/12/23 17:55 [From ] trimethoprim [From ] Allergy Rash/Hives Verified 04/12/23 17:55 Surgical - Exam - General well developed, well nourished, no distress - Eyes normal ocular movement, no icteric - ENT no hearing loss, no congestion - Neck no masses, trachea midline - Respiratory normal respiratory effort, clear to auscultation - Abdomen Abdomen: soft, non tender, no guarding, no rigid, no rebound - Genitourinary complee vaginal prolapse s/p hysterectomy - Integumentary no rash, no abnormal pigmentation - Neurologic no disoriented, no combative - Psychiatric oriented to time, oriented to person, oriented to place, speech is normal, memory intact Results - Imaging Abdominal x-ray: report reviewed, image reviewed Assessment and Plan Assessment: Impression: retracted right ureteral stent with vaginal prolapse Plan: right ureteroscopy with stent removal
[2023-04-17] MEDS ORDERED: MIDAZOLAM 2 MG/2 ML VIAL IV PRN (06:42)
[2023-04-17] MEDS ORDERED: LIDOCAINE 1% (10MG/ML) FOR IV START INTRADERMA PRN (06:42)
[2023-04-17] MEDS ORDERED: LACTATED RINGERS 1,000 ML IV SCH (06:42)
[2023-04-17] MEDS ORDERED: ONDANSETRON 4 MG/2 ML VIAL IVP ONE (06:42)
[2023-04-17] MEDS ORDERED: DEXAMETHASONE SOD PHOSPHATE 4 MG/ML 1 ML VIAL IV ONE (06:42)
[2023-04-17] MEDS ORDERED: HYDROmorphone 0.5 MG/0.5 ML SYRINGE IVP PRN (06:42)
--- NOTE | 2023-04-17 07:43 | XR ---
EXAMINATION TYPE: XR KUB DATE OF EXAM: 04/17/2023 COMPARISON: 04/10/2023 INDICATION: Right ureteral stent TECHNIQUE: Single view abdomen supine view FINDINGS: There is a normal bowel gas pattern. Psoas margins are normal. No organomegaly is present. There is a right-sided ureteral stent present. Appears stable in position and orientation. IMPRESSION: 1. Right-sided ureteral stent.
[2023-04-17] MEDS ORDERED: LIDOCAINE 2% INJ 20 MG/ML (2 ML VIAL) ONE (08:49)
[2023-04-17] MEDS ORDERED: PROPOFOL 10 MG/ML 20 ML VIAL IV ONE (08:49)
--- NOTE | 2023-04-17 09:31 | P.OP ---
Date of Procedure: 04/17/23 Preoperative Diagnosis: Retained right ureteral stent, complete vaginal prolapse Postoperative Diagnosis: Same Procedure(s) Performed: Cystoscopy, right ureteroscopy with stent removal Anesthesia: CLARISSA Surgeon: Robb Grier Estimated Blood Loss (ml): 0 Pathology: none sent Condition: stable Disposition: PACU Indications for Procedure: The patient is a 82. She recently underwent a right ureteroscopy, laser lithotripsy and stent placement for a very large impacted distal ureteral stone. She came for stent removal last week but the stent had retracted up into the distal ureter because of complete vaginal prolapse and bladder descent. She come for right ureteroscopy and stent removal Description of Procedure: Patient brought to the operating suite. Given general anesthesia. Placed lithotomy position with a sterile prep and drape. The complete vaginal prolapse is reduced with 4 Ray-Romy sponges a. Cystoscopy Foroblique lens and 21-Belarusian sheath identifies a normal urethra. The bladder mucosa is unremarkable. The stent is not seen at the ureteral orifice. I passed the semirigid ureteroscope into the distal ureter just at the level of the entrance to the intramural tunnel. With the hanna grasping forceps the stent is grasped and removed. The bladder is drained the Ray-Romy sponges are removed from the vagina. The patient is awakened and returned recovery room good condition Impression successful right ureteroscopy and stent removal Recommendations: The patient will be discharged home upon recovery. She has an appointment to see to consider sacral colpopexy for her vaginal prolapse
[2023-04-17 09:33] VITALS: TEMP 97.4
[2023-04-17 10:53] VITALS: RESP 18
[2023-04-17 11:16] VITALS: BP 137/71; PULSE 75
--- NOTE | 2023-04-17 13:02 | FL ---
Intraoperative/procedural fluoroscopic services were provided. Total fluoroscopy time is 1.7 seconds with a total of 1 submitted images to PACS. Please see the operative/procedural note for further deta ils. DAP: 0.1236 mGym2
== END 2023-04-17 11:23 | disposition home or self-care (01) ==
LOC: OR 06:34
PROVIDERS: ATTEND Urology
DX: N81.10 Cystocele, unspecified (principal); I48.91 Unspecified atrial fibrillation; I25.10 Atherosclerotic heart disease of native coronary artery without angina pectoris; I10 Essential (primary) hypertension; E78.5 Hyperlipidemia, unspecified; I25.2 Old myocardial infarction; M19.90 Unspecified osteoarthritis, unspecified site; Z87.442 Personal history of urinary calculi; Z90.49 Acquired absence of other specified parts of digestive tract; Z90.710 Acquired absence of both cervix and uterus; Z95.5 Presence of coronary angioplasty implant and graft; F41.9 Anxiety disorder, unspecified; Z86.59 Personal history of other mental and behavioral disorders; Z82.49 Family history of ischemic heart disease and other diseases of the circulatory system; Z88.0 Allergy status to penicillin; Z88.2 Allergy status to sulfonamides; Z88.1 Allergy status to other antibiotic agents; Z79.899 Other long term (current) drug therapy
CPT/HCPCS: 74018; 52310; J1100; J2405; J0690; J2704; J1170; J2001

== ENCOUNTER → 2023-06-03 | Outpatient (CLI) | payer MEDICARE, BC ==
--- NOTE | 2023-06-04 10:32 | BD ---
EXAMINATION TYPE: Axial Bone Density DATE OF EXAM: 06/03/2023 CLINICAL HISTORY: 82 years old Female. ICD-10 CODE: M85.88 DISORDER OF BONE Height: 65.25 Weight: 191.4 FRAX RISK QUESTIONS: Alcohol (3 or more units per day): no Family History (Parent hip fracture): no Glucocorticoids (More than 3mos): no History of Fracture in Adulthood: yes, bilateral elbow Secondary Osteoporosis: 1. Type 1 Diabetes: no 2. Hyperthyroidism: no 3. Menopause before 45: no 4. Malnutrition: no 5. Chronic liver disease: no Rheumatoid Arthritis: no Current Tobacco Use: no RISK FACTORS HISTORY OF: Hip Fracture (Right/Left): no Spine Fracture: no History of Wrist Fracture: no Surgery to Spine/Hip(right/left)/Wrist (right/left): no Family History of Osteoporosis: no Active: no Diet low in dairy products/other sources of calcium: no Postmenopausal woman: yes Take estrogen and/or progesterone medications: no Lost more than 2 inches in height since high school: no Frequent falls: no Poor Health: no Hyperparathyroidism: no Adrenal Insufficiency: no MEDICATIONS: Prednisone or other steroids: no Thyroid Medications: levothyroxin How Lon years Osteoporosis Medications: no Additional Medications: BP Med, Cholesterol Meds, Reflux Meds, Multi Vit, Calcium, Vit D Additional History: EXAM MEASUREMENTS: Bone mineral densitometry was performed using the [employer] System. Bone mineral density as measured about the Lumbar spine is: ----- L1-L4(G/cm2): 1.187 T Score Values are as follows: ----- L1: 0.7 ----- L2: -0.9 ----- L3: -1.0 ----- L4: 1.4 ----- L1-L4: 0.1 Z Score Values are as follows: ----- L1: 1.8 ----- L2: 0.2 ----- L3: 0.1 ----- L4: 2.5 ----- L1-L4: 1.2 Bone mineral density has: unchanged 0.0 % since study of: 04/15/2017 Bone mineral density about the R hip (g/cm2): 0.888 Bone mineral density about the L hip (g/cm2): 0.763 T Score values are as follows: -----R Neck: -1.6 -----L Neck: -2.0 -----R Total: -1.0 -----L Total: -1.9 Z Score values are as follows: -----R Neck: 0.1 -----L Neck: -0.4 -----R Total: 0.6 -----L Total: -0.4 Bone mineral density has: decreased 13.9 % since study of: 04/04/2017 FRAX%s: The graph provided illustrates a 22.1% chance for a major osteoporotic fx and a 6.0% chance f or the hips probability for fx in 10 years time. IMPRESSION: Osteopenia (T Score between -2.5 and -1). There is slightly increased risk of fracture and the patient may be considered for treatment. Re-Screen 2-5 years. NOTE: T-SCORE=SD OF THE YOUNG ADULT MEAN.
== END | disposition home or self-care (01) ==
LOC: RADBDWWP 13:45
PROVIDERS: ATTEND Internal Medicine
DX: M85.89 Other specified disorders of bone density and structure, multiple sites (principal); N95.1 Menopausal and female climacteric states
CPT/HCPCS: 77080

== ENCOUNTER → 2023-07-18 | Outpatient (CLI) | payer MEDICARE, BC | END | disposition home or self-care (01) | LOC: LABPAT 11:13 | PROVIDERS: ATTEND Urology | DX: Z01.812 Encounter for preprocedural laboratory examination (principal); N81.9 Female genital prolapse, unspecified; N39.3 Stress incontinence (female) (male); R31.29 Other microscopic hematuria ==

== ENCOUNTER → 2023-08-16 | Outpatient (CLI) | payer MEDICARE, BC ==
--- NOTE | 2023-08-16 12:21 | XR ---
EXAMINATION TYPE: XR chest 2V DATE OF EXAM: 08/16/2023 COMPARISON: 12/14/2019 HISTORY: Shortness of breath TECHNIQUE: Frontal and lateral views of the chest are obtained. FINDINGS: Scattered senescent parenchymal changes noted. Hyperinflation compatible with COPD. No evidence for infiltrate. No evidence for atelectasis. Heart size is stable. Mediastinal structures are stable and grossly unremarkable. No evidence for hilar prominence. Degenerative changes dorsal spine. IMPRESSION: 1. No evidence for acute pulmonary disease.
== END | disposition home or self-care (01) ==
LOC: RADXRMAIN 11:56
PROVIDERS: ATTEND Internal Medicine
DX: R05.9 Cough, unspecified (principal); R06.02 Shortness of breath
CPT/HCPCS: 71046

== ENCOUNTER → 2025-05-04 | Outpatient (CLI) | payer MEDICARE, BC ==
[2025-05-04 10:05] LABS: African American GFR (CKD) 67 (>60 ml/min/1.73 sqM); Blood Urea Nitrogen 18 mg/dL (7-17); Non-African American GFR(CKD) 58 (>60 ml/min/1.73 sqM)
--- NOTE | 2025-05-04 15:31 | CT ---
EXAMINATION TYPE: CT chest w con DATE OF EXAM: 05/04/2025 10:26 AM COMPARISON: 01/08/2020 CLINICAL INDICATION: Female, 84 years old with history of D86.0 SARCOIDOSIS; [facility], TECHNIQUE: Multiple axial images were obtained through the chest. Sagittal and coronal reformats were created for review. MIP was performed on a separate workstation. Contrast used: mL of (None if empty) Oral contrast used: (None if empty) CT DLP: mGycm, Automated exposure control for dose reduction was used. FINDINGS: LUNGS/ PLEURA: Scattered pulmonary nodules throughout the lungs which could be compatible with patien t's reported history of sarcoidosis. These are not significantly changed from prior. No focal consoli dation, pneumothorax or pleural effusion. AIRWAY: Patent and unremarkable. HEART: Size within normal limits. Moderate to severe coronary artery calcifications. MEDIASTINUM: Bilateral parahilar enlarged lymph nodes. VASCULATURE: No aortic aneurysm. Severe atherosclerosis of the arterial vasculature. MUSCULOSKELETAL: Moderate disc degeneration changes are present throughout the thoracolumbar spine se condary to osteophyte formation and facet joint arthropathy. SOFT TISSUES/LYMPH NODES: Unremarkable. LOWER NECK: No significant findings. UPPER ABDOMEN: No significant findings. IMPRESSION: 1. Perihilar and mediastinal lymphadenopathy compatible with diagnosis of sarcoidosis. 2. Scattered pulmonary nodules also present and compatible with granulomatous change/sarcoidosis. No dules are all relatively stable from prior 01/08/2020. This concern for malignancy consider pet/CT. 3. Severe others close of the arterial vasculature. 4. Severe mitral valve annular cusp patient's. 5. Moderate to severe coronary artery atherosclerosis. Follow up recommendations for incidental pulmonary nodules, if there are any, are per [employer]ischner?s [employer] or [employer]. [email or web address]?lang=us [facility], , 05/04/2025 3:29 PM
== END | disposition home or self-care (01) ==
LOC: RADCTMAIN 09:15
PROVIDERS: ATTEND Internal Medicine
DX: D86.0 Sarcoidosis of lung (principal); I25.10 Atherosclerotic heart disease of native coronary artery without angina pectoris; R59.0 Localized enlarged lymph nodes; R91.8 Other nonspecific abnormal finding of lung field
CPT/HCPCS: 82565; 84520; 71260; 36415; Q9967